=== PATIENT | male | born 1985 | race Caucasian/White ===

== ENCOUNTER 2022-11-01 18:50 | Inpatient (IN) | payer OTHER, SELFPAY ==
[2022-11-01] VITALS (7 sets, daily range): BP systolic 104–142; BP diastolic 67–80; PULSE 13–124; RESP 12–20; TEMP 37.3–37.9; O2SAT 99–100; BMI 53.1
--- NOTE | ~2022-11-01 | CT_ITS ---
EXAMINATION: CT ABDOMEN AND PELVIS WITHOUT AND WITH CONTRAST CLINICAL INFORMATION: GI bleed. Anemia. COMPARISON: None available. TECHNIQUE: Multidetector volumetric imaging was performed of the abdomen and pelvis before and after the IV administration of 80 mL of Omnipaque 350 intravenous contrast. Axial images repeated through the abdomen pelvis after a 2 minute delay. Sagittal and coronal reformatted images were obtained on the technologist's workstation. This CT examination was performed using dose optimization techniques as appropriate, variously including the following: *Automated exposure control *Adjustment of mA and/or kV according to patient size (this includes techniques or standardized protocols for targeted exams where dose is matched to indication/reason for exam; i.e. extremities or head) *Use of iterative reconstruction technique DLP: 2748 mGy-cm FINDINGS: LUNG BASES: A large hiatal hernia. Most of the stomach is above the diaphragm. Lung bases are normally aerated. No pleural effusion. LIVER, GALLBLADDER, AND BILIARY TREE: The liver is normal in size, shape, and attenuation. No focal hepatic lesion or biliary ductal dilatation is present. The gallbladder is unremarkable with no evidence of radiopaque gallstones, gallbladder wall thickening, or obvious pericholecystic inflammatory changes. PANCREAS: Unremarkable SPLEEN: Unremarkable ADRENAL GLANDS: Unremarkable KIDNEYS AND URETERS: The kidneys are normal in size, shape, and attenuation. No hydronephrosis, hydroureter, or calculi seen. No perinephric stranding. BLADDER: Unremarkable GASTROINTESTINAL TRACT: No evidence of gastrointestinal hemorrhage. Large hiatal hernia. Most of the stomach is above the diaphragm. No acute change of the bowel. No bowel obstruction. No bowel wall thickening or edema. No diverticula evident. The appendix is not visualized. There is no inflammatory change of the mesentery. ABDOMINAL WALL: No significant hernia is appreciated. LYMPH NODES: Normal VASCULAR: Unremarkable PELVIC VISCERA: Unremarkable OSSEOUS STRUCTURES: Unremarkable CT/CT gi bleed abd pel wo/w IVcon IMPRESSION: 1. No acute abnormality CT scan abdomen pelvis. No evidence of gastrointestinal hemorrhage. 2. Large hiatal hernia. Fleischner guidelines were followed.
--- NOTE | 2022-11-01 19:00 | PC.NURSE ---
Patient BIBA from home. Patient noted black and tarry stool since last Tuesday. Patient became dizzy, pale, diaphoretic today at home. Patient felt brief sensation of chest pain prior to arrival to ED which resolved. Patient also reports mid abdominal pain. Oral temp 100.3. EKG completed, Dr. Noyola at bedside. Labs drawn per MD orders and sent to lab for processing. [place] applied to patient's chest, patient medicated with oral Tylenol. Patient's spouse is at bedside, call navarro within patient's reach.
--- NOTE | 2022-11-01 19:02 | ECG_ITS ---
Test Reason : ABD PAIN Blood Pressure : / mmHG Vent. Rate : 101 BPM Atrial Rate : 101 BPM P-R Int : 140 ms QRS Dur : 082 ms QT Int : 314 ms P-R-T Axes : 031 018 020 degrees QTc Int : 407 ms Sinus tachycardia Possible Inferior infarct , age undetermined Abnormal ECG No previous ECGs available Referred By: Generic ED Physician Electronically Signed By:ERNESTINA STUART
[2022-11-01 19:16] LABS: MANUAL DIFF FLAG NO
[2022-11-01 19:22] LABS: Basophils Absolute Auto 0.1 X10*3/uL (0.0-0.2); Basophils Percent Auto 0.9 % (0-2); Eosinophils Absolute Auto 0.1 X10*3/uL (0.0-0.4); Eosinophils Percent Auto 1.2 % (0-4); Hematocrit 21.9 % (42.0-52.0); Hemoglobin 7.1 g/dl (14.0-18.0); Imm Gran Abs Auto 0.01 X10*3/uL (0.00-0.03); Imm Gran Pct Auto 0.1 % (0.0-0.4); Lymphocytes Percent Auto 21.7 % (20-40); Mean Corpuscular HGB Conc 32.4 g/dl (31.0-36.0); Mean Corpuscular Hemoglobin 28.7 pg (27.0-33.0); Mean Corpuscular Volume 88.7 fL (80.0-98.0); Monocytes Absolute Auto 0.8 X10*3/uL (0.1-1.2); Monocytes Percent Auto 8.4 % (2-11); Neutrophils Absolute Auto 6.1 x10*3/uL (2.0-8.3); Neutrophils Percent Auto 67.7 % (45-73); Platelet Count 278 X10*3/uL (160-400); Red Blood Count 2.47 X10*6/uL (4.60-5.80); Red Cell Distribution Width 13.1 % (11.0-16.0)
[2022-11-01 19:29] LABS: Prothrombin Time 12.7 SEC (11.1-13.3)
[2022-11-01 19:34] LABS: OBS Int Ctl Valid YES; OBS1 POSITIVE (NEGATIVE)
[2022-11-01 19:34] LABS: Alanine Aminotransferase 10 U/L (0-40); Albumin Level 2.9 g/dL (3.5-5.0); Alkaline Phosphatase 46 U/L (39-117); Anion Gap 9 (12-20); Aspartate Amino Transferase 11 U/L (5-37); Bilirubin Total 0.2 mg/dL (0.0-1.0); Blood Urea Nitrogen 28 mg/dL (9-16); Calcium 7.8 mg/dL (8.4-10.2); Carbon Dioxide 23 mmol/L (22-29); Chloride 112 mmol/L (96-108); Creatinine Clr Calc Pharmacy 174.5; Estimated Glomerular Filt Rate > 60; Glucose Random 120 mg/dL (60-115); Potassium 4.2 mmol/L (3.3-5.1); Sodium 140 mmol/L (135-145); Total Protein 4.7 g/dL (6.5-8.0)
[2022-11-01 19:45] LABS: Troponin-I High Sensitivity < 2.7 ng/L (<3.5-35.0)
--- NOTE | 2022-11-01 19:57 | ED.GIBLEED ---
HPI - GI Bleed General Chief complaint: GI Bleed Stated complaint: Dark tarry stool last week, again lst few days Time Seen by Provider: 11/01/22 19:11 Source: patient Mode of arrival: ambulatory Limitations: no limitations History of Present Illness HPI Narrative: Patient comes to the emergency room from home via ambulance. Patient states then about a week, patient noticed that he had dark stool and then self-resolved. Then, for the last 2 days, patient has been having diarrhea with tarry looking stool. Patient states that he has been taking Pepto-Bismol to help with the diarrhea. However, today, when patient was trying to get up from the toilet, patient nearly passed out. Patient was able to catch himself against the wall before landing on the ground. Patient did not hit his head, did not lose consciousness. Patient on blood thinners. Patient states that he usually does not take ibuprofen, a few days ago took Tylenol for the abdominal cramping. Patient has no past medical history. Related Data Allergies Allergy/AdvReac Type Severity Reaction Status Date / Time No Known Allergies Allergy Verified 11/01/22 19:29 Review of Systems Review of Systems: Constitutional : No Weight loss, No Fever, No Chills, No Night Sweats, No Fatigue, No Malaise ENT/Mouth : No Hearing loss, No Ear Pain, No Nasal Congestion, No Sinus Pain, No Hoarseness, No sore throat, No Rhinorrhea, No Swallowing Difficulty Eyes: No Eye Pain, No Swelling, No Redness, No Foreign Body, No Discharge, No Vision Changes Cardiovascular : No Chest Pain, No SOB, No Dyspnea on Exertion, No Orthopnea, No Edema, No Palpitations Respiratory : No Cough, No Sputum, No Wheezing, No Smoke Exposure, No Dyspnea Gastrointestinal : No Nausea, No Vomiting, No Diarrhea, No Constipation, complaining of abdominal cramping, significant pain, no hematochezia, complaining of melena Genitourinary : no irregular bleeding, No Dysuria, No Urinary Frequency, No Hematuria, No Urinary Incontinence, No Urgency, No Flank Pain, No Urinary Flow Changes, No Hesitancy Musculoskeletal : No joint pain, No Myalgias, No Joint Swelling Skin : No Skin Lesions, No rash Neuro : No Weakness, No Numbness, No Paresthesias, patient had a near syncopal episode Psych : No Anxiety/Panic, No Depression, No SI/HI/AH/VH, No Social Issues, Heme/Lymph: No Bruising, No Bleeding,No Lymphadenopathy Endocrine : No Polyuria, No Polydipsia, No Temperature Intolerance [facility] Social History Social History Alcohol intake: current Alcohol intake frequency: a few times a week Alcohol type: beer Smoked in Last 30 Days: No Use of substances other than those prescribed or required for medical reasons: No Advance Directives: No Advance Directives Information Provided: No Physical Exam Vital Signs: Vital Signs: Last Vital Signs Temp 99.1 F 11/01/22 21:49 Pulse 13 L 11/01/22 21:49 Resp 12 11/01/22 21:49 BP 110/80 11/01/22 21:49 Pulse Ox 99 11/01/22 21:03 O2 Del Method Room Air 11/01/22 21:03 BMI result Body Mass Index 53.1 Const: Other: Appearance: Alert. Oriented X3. No acute distress. Eyes: Pupils equal, round and reactive to light. ENT: Pharynx normal. Neck: Normal inspection. Neck supple. No lymph nodes noted. No crepitus CVS: Normal heart rate and rhythm. Pulses normal. Normal S1 and S2 Respiratory: No respiratory distress. Breath sounds normal. No Wheezing. No rales Abdomen: Soft and nontender. No rigidity. No distention. Patient has black stool on digital rectal exam Skin: Skin warm and dry. Patient is significantly pale. Normal skin turgor. Extremities: No lower extremity edema. No Lacerations. No Rash Neuro: Oriented X 3. No motor deficit. No sensory deficit. Moving all extremities. No slurred speech. CN 2 through 12 grossly intact Psych: calm, cooperative, normal affect Medications Administered Discontinued Medications Generic Name Dose Route Start Last Admin Trade Name Freq PRN Reason Stop Dose Admin Acetaminophen 975 mg 11/01/22 21:09 11/01/22 21:18 Acetaminophen 325 Mg Tablet PO 11/01/22 21:10 975 mg ONCE ONE Administration Sodium Chloride 100 mls @ 100 mls/hr 11/01/22 19:30 11/01/22 21:36 Ns IV 11/01/22 20:29 100 mls/hr ONCE ONE Administration Iohexol 100 ml 11/01/22 20:52 11/01/22 20:52 Iohexol 350 Mg/Ml 100 Ml Infus..Btl IV 11/01/22 20:53 80 ml ONCE ONE Administration Medical Decision Making Medical Decision Making MDM Narrative: -my interpretation of labs, hemoglobin 7.1, hematocrit 22, occult guaiac tested positive -I discussed with the patient he likely has a GI bleed. Most labs pending and CT scan pending -I discussed with the patient the benefits versus risks of a blood transfusion, patient agreeable to get transfused. Patient will need at least 2 units -after 2 hours, H&H was repeated, hemoglobin is stable, slightly improved to 7.6. Blood transfusion has not started. About to start now. -CT scan has been done but radiology report pending. My interpretation of CT scan: No obvious abnormality or massive GI bleed. -patient has not had any fresh red blood per rectum -I discussed the patient with Dr. Singh, patient being admitted Differential Diagnosis Differential Diagnoses: The differential diagnosis associated with the presentation includes (Upper GI bleed, lower GI bleed, infectious colitis, ulcerative colitis) Admission/Observation Consideration of admission/observation: Escalation of care including admission/observation considered (Discussed with the patient that once the workup is completed he will be admitted) Consult Healthcare Provider Management of the patient was discussed with: Hospitalist (Dr. Singh) Lab Data [facility] Lab Attestation statement: I reviewed the patient's lab results. 11/01/22 19:12 11/01/22 19:12 Labs: Lab Results 11/01/22 11/01/22 11/01/22 Range/Units 19:12 19:12 19:12 WBC 9.0 (4.8-10.8) X10*3/uL RBC 2.47 L (4.60-5.80) X10*6/uL Hgb 7.1 L (14.0-18.0) g/dl Hct 21.9 L (42.0-52.0) % MCV 88.7 (80.0-98.0) fL MCH 28.7 (27.0-33.0) pg MCHC 32.4 (31.0-36.0) g/dl RDW 13.1 (11.0-16.0) % Plt Count 278 (160-400) X10*3/uL MPV 9.0 L (9.4-12.4) fL Immature Gran % (Auto) 0.1 (0.0-0.4) % Neut % (Auto) 67.7 (45-73) % Lymph % (Auto) 21.7 (20-40) % [place] % (Auto) 8.4 (2-11) % Eos % (Auto) 1.2 (0-4) % Baso % (Auto) 0.9 (0-2) % Lymph # (Auto) 2.0 (1.2-4.9) X10*3/uL [place] # (Auto) 0.8 (0.1-1.2) X10*3/uL Eos # (Auto) 0.1 (0.0-0.4) X10*3/uL Baso # (Auto) 0.1 (0.0-0.2) X10*3/uL Abs Immat Gran (auto) 0.01 (0.00-0.03) X10*3/uL Absolute Neuts (auto) 6.1 (2.0-8.3) x10*3/uL Absolute Nucleated RBC 0.000 (0.0-0.012) X10*3/uL Nucleated RBC % (auto) 0.0 (0.0-0.2) /100WBC PT 12.7 (11.1-13.3) SEC INR 1.0 (0.9-1.1) Sodium 140 (135-145) mmol/L Potassium 4.2 (3.3-5.1) mmol/L Chloride 112 H (96-108) mmol/L Carbon Dioxide 23 (22-29) mmol/L Anion Gap 9 L (12-20) BUN 28 H (9-16) mg/dL Creatinine 0.74 (0.5-1.4) mg/dL Estim Creat Clear Calc 174.5 Estimated GFR > 60 Random Glucose 120 H (60-115) mg/dL Lactic Acid (0.5-2.0) mmol/L Calcium 7.8 L (8.4-10.2) mg/dL Iron 41 L (45-160) mcg/dL TIBC 239 (228-428) mcg/dL % Saturation 17 (15-50) % Unsat Iron Binding 198 ug/dL Total Bilirubin 0.2 (0.0-1.0) mg/dL AST 11 (5-37) U/L ALT 10 (0-40) U/L Alkaline Phosphatase 46 (39-117) U/L Troponin I High Sens (<3.5-35.0) ng/L Total Protein 4.7 L (6.5-8.0) g/dL Albumin 2.9 L (3.5-5.0) g/dL Stool Occult Blood (NEGATIVE) Blood Type Antibody Screen Crossmatch 11/01/22 11/01/22 11/01/22 Range/Units 19:12 19:25 19:49 WBC (4.8-10.8) X10*3/uL RBC (4.60-5.80) X10*6/uL Hgb (14.0-18.0) g/dl Hct (42.0-52.0) % MCV (80.0-98.0) fL MCH (27.0-33.0) pg MCHC (31.0-36.0) g/dl RDW (11.0-16.0) % Plt Count (160-400) X10*3/uL MPV (9.4-12.4) fL Immature Gran % (Auto) (0.0-0.4) % Neut % (Auto) (45-73) % Lymph % (Auto) (20-40) % [place] % (Auto) (2-11) % Eos % (Auto) (0-4) % Baso % (Auto) (0-2) % Lymph # (Auto) (1.2-4.9) X10*3/uL [place] # (Auto) (0.1-1.2) X10*3/uL Eos # (Auto) (0.0-0.4) X10*3/uL Baso # (Auto) (0.0-0.2) X10*3/uL Abs Immat Gran (auto) (0.00-0.03) X10*3/uL Absolute Neuts (auto) (2.0-8.3) x10*3/uL Absolute Nucleated RBC (0.0-0.012) X10*3/uL Nucleated RBC % (auto) (0.0-0.2) /100WBC PT (11.1-13.3) SEC INR (0.9-1.1) Sodium (135-145) mmol/L Potassium (3.3-5.1) mmol/L Chloride (96-108) mmol/L Carbon Dioxide (22-29) mmol/L Anion Gap (12-20) BUN (9-16) mg/dL Creatinine (0.5-1.4) mg/dL Estim Creat Clear Calc Estimated GFR Random Glucose (60-115) mg/dL Lactic Acid 1.3 (0.5-2.0) mmol/L Calcium (8.4-10.2) mg/dL Iron (45-160) mcg/dL TIBC (228-428) mcg/dL % Saturation (15-50) % Unsat Iron Binding ug/dL Total Bilirubin (0.0-1.0) mg/dL AST (5-37) U/L ALT (0-40) U/L Alkaline Phosphatase (39-117) U/L Troponin I High Sens < 2.7 (<3.5-35.0) ng/L Total Protein (6.5-8.0) g/dL Albumin (3.5-5.0) g/dL Stool Occult Blood POSITIVE (NEGATIVE) Blood Type Antibody Screen Crossmatch 11/01/22 11/01/22 Range/Units 19:50 21:14 WBC (4.8-10.8) X10*3/uL RBC (4.60-5.80) X10*6/uL Hgb 7.6 L (14.0-18.0) g/dl Hct 23.0 L (42.0-52.0) % MCV (80.0-98.0) fL MCH (27.0-33.0) pg MCHC (31.0-36.0) g/dl RDW (11.0-16.0) % Plt Count (160-400) X10*3/uL MPV (9.4-12.4) fL Immature Gran % (Auto) (0.0-0.4) % Neut % (Auto) (45-73) % Lymph % (Auto) (20-40) % [place] % (Auto) (2-11) % Eos % (Auto) (0-4) % Baso % (Auto) (0-2) % Lymph # (Auto) (1.2-4.9) X10*3/uL [place] # (Auto) (0.1-1.2) X10*3/uL Eos # (Auto) (0.0-0.4) X10*3/uL Baso # (Auto) (0.0-0.2) X10*3/uL Abs Immat Gran (auto) (0.00-0.03) X10*3/uL Absolute Neuts (auto) (2.0-8.3) x10*3/uL Absolute Nucleated RBC (0.0-0.012) X10*3/uL Nucleated RBC % (auto) (0.0-0.2) /100WBC PT (11.1-13.3) SEC INR (0.9-1.1) Sodium (135-145) mmol/L Potassium (3.3-5.1) mmol/L Chloride (96-108) mmol/L Carbon Dioxide (22-29) mmol/L Anion Gap (12-20) BUN (9-16) mg/dL Creatinine (0.5-1.4) mg/dL Estim Creat Clear Calc Estimated GFR Random Glucose (60-115) mg/dL Lactic Acid (0.5-2.0) mmol/L Calcium (8.4-10.2) mg/dL Iron (45-160) mcg/dL TIBC (228-428) mcg/dL % Saturation (15-50) % Unsat Iron Binding ug/dL Total Bilirubin (0.0-1.0) mg/dL AST (5-37) U/L ALT (0-40) U/L Alkaline Phosphatase (39-117) U/L Troponin I High Sens (<3.5-35.0) ng/L Total Protein (6.5-8.0) g/dL Albumin (3.5-5.0) g/dL Stool Occult Blood (NEGATIVE) Blood Type O Positive Antibody Screen NEGATIVE Crossmatch See Detail Independent Interpretation I performed an independent interpretation of an: CT Scan Radiology Impression Discussion of test interpretation with radiology: I have reviewed the radiologist's reading. Radiologist Impression: FINDINGS: LUNG BASES: A large hiatal hernia. Most of the stomach is above the diaphragm. Lung bases are normally aerated. No pleural effusion. LIVER, GALLBLADDER, AND BILIARY TREE: The liver is normal in size, shape, and attenuation. No focal hepatic lesion or biliary ductal dilatation is present. The gallbladder is unremarkable with no evidence of radiopaque gallstones, gallbladder wall thickening, or obvious pericholecystic inflammatory changes.? PANCREAS: Unremarkable? SPLEEN: Unremarkable? ADRENAL GLANDS: Unremarkable? KIDNEYS AND URETERS: The kidneys are normal in size, shape, and attenuation. No hydronephrosis, hydroureter, or calculi seen. No perinephric stranding.? BLADDER: Unremarkable? GASTROINTESTINAL TRACT: No evidence of gastrointestinal hemorrhage. Large hiatal hernia. Most of the stomach is above the diaphragm. No acute change of the bowel. No bowel obstruction. No bowel wall thickening or edema. No diverticula evident. The appendix is not visualized. There is no inflammatory change of the mesentery. ABDOMINAL WALL: No significant hernia is appreciated.? LYMPH NODES: Normal VASCULAR: Unremarkable PELVIC VISCERA: Unremarkable? OSSEOUS STRUCTURES: Unremarkable? Critical Care Time Critical Care Time Critical Care Time: Yes Total Critical Care Time: 75 Attestation: I have personally provided critical care time. Time includes review of lab data, radiology results, discussion with consultants, and monitoring for potential decompensation. Intervention performed as documented. Discharge Plan Discharge Clinical Impression: Acute GI bleeding, Anemia Patient Disposition: Admitted As Inpatient
[2022-11-01 20:12] LABS: Lactic Acid 1.3 mmol/L (0.5-2.0)
--- NOTE | 2022-11-01 20:42 | MHC.EDTECH ---
Unable to get orthostaics vitals with patient standing up due to patient being dizzy DR. Jazmín DILLARD was made aware
--- NOTE | 2022-11-01 20:49 | MHC.EDTECH ---
Plan of care is ongoing Call light is within reach pt expresses no other needs at this time
[2022-11-01] MEDS: iohexoL 350 MG/ML 100 ML INFUS..BTL IV (20:52)
[2022-11-01] MEDS: Acetaminophen 325 MG TABLET 975 MG PO (21:18)
[2022-11-01 21:23] LABS: Hemoglobin 7.6 g/dl (14.0-18.0)
[2022-11-01 22:05] LABS: Iron 41 mcg/dL (45-160); Percent Iron Saturation 17 % (15-50); Total Iron Binding Capacity 239 mcg/dL (228-428); Unsaturated Iron Binding 198 ug/dL
--- NOTE | 2022-11-01 22:51 | PM.IMHP ---
History of Present Illness Date of Service: 11/01/22 Chief Complaint: Melena , dizziness A 37 years old morbidly obese male with no significant PMH who presents today with reported 2 weeks on\off melena with incident of near syncope upon getting up from toilet. The patient denies any hx of NSAIDs usage, Alcohol, smoking, dyspepsia, heartburn as he uses tylenol for pain if needed. Denies any fever, chills, weight\appetite change, Prev hx of similar problem, chest pain, nausea or vomiting. For the last 2 weeks he noticed on\off incidents of melena that worsened the last 3 days with black diarrhea. he almost passed out upon standing up so he came to the hospital for further eval. In ED, found to have Hb of 7.1 with no baseline available. Positive occult stool. Admitted for futher eval and treatment. Review of Systems Review of Systems: No fever, chills No chest pain, palpitation No shortness of breath or coughing No abdominal pain, nausea or vomiting No urinary symptoms No any rash or wounds PMFSH Medical History Morbid obesity with BMI of 50.0-59.9, adult Functional capacity: independent ambulation Social History Alcohol intake: current Alcohol intake frequency: a few times a week Alcohol type: beer Smoked in Last 30 Days: No Use of substances other than those prescribed or required for medical reasons: No Advance Directives: No Advance Directives Information Provided: No Meds Allergies Allergy/AdvReac Type Severity Reaction Status Date / Time No Known Allergies Allergy Verified 11/01/22 19:29 Active Medications: Current Medications Acetaminophen (Acetaminophen 325 Mg Tablet) 650 mg PO Q6H PRN PRN Reason: Pain, Mild (Pain Scale 1-3) Ondansetron HCl (Ondansetron Hcl 4 Mg/2 Ml Vial) 4 mg IVPUSH Q8H PRN PRN Reason: Nausea and Vomiting Sodium Chloride (0.9 % Sodium Chloride Flush 3 Ml Syringe) 3 ml IVFLUSH QSHIFT PENDING SALE TO [facility] Physical Exam Vital Signs and Narrative: Vital Signs: Last Vital Signs Temp 99.1 F 11/01/22 21:49 Pulse 13 L 11/01/22 21:49 Resp 12 11/01/22 21:49 BP 110/80 11/01/22 21:49 Pulse Ox 99 11/01/22 21:03 O2 Del Method Room Air 11/01/22 21:03 BMI result Body Mass Index 53.1 Const: Other: Constitutional : Awake, interactive, obese, not in distress Neck : Normal inspection, Supple Cardiovascular : RRR, no JVP, no lower extremity edema Respiratory : good bilateral air entry, no crackles, wheezes or rhonchi Gastrointestinal: soft, lax, Normal bowel sounds, Non tender Skin : Warm, Dry Neurological : Alert & oriented x3, No focal deficit Results Labs 11/01/22 21:14 11/01/22 19:12 Labs: Laboratory Results - last 24 hr 11/01/22 11/01/22 11/01/22 19:12 19:12 19:12 MCV 88.7 MCH 28.7 MCHC 32.4 RDW 13.1 Plt Count 278 MPV 9.0 L Immature Gran % (Auto) 0.1 Neut % (Auto) 67.7 Lymph % (Auto) 21.7 [place] % (Auto) 8.4 Eos % (Auto) 1.2 Baso % (Auto) 0.9 Lymph # (Auto) 2.0 [place] # (Auto) 0.8 Eos # (Auto) 0.1 Baso # (Auto) 0.1 Abs Immat Gran (auto) 0.01 Absolute Neuts (auto) 6.1 Absolute Nucleated RBC 0.000 Nucleated RBC % (auto) 0.0 PT 12.7 INR 1.0 Anion Gap 9 L Estim Creat Clear Calc 174.5 Estimated GFR > 60 Random Glucose 120 H Lactic Acid Calcium 7.8 L Iron 41 L TIBC 239 % Saturation 17 Unsat Iron Binding 198 Total Bilirubin 0.2 AST 11 ALT 10 Alkaline Phosphatase 46 Total Protein 4.7 L Albumin 2.9 L Stool Occult Blood Blood Type Antibody Screen Crossmatch 11/01/22 11/01/22 11/01/22 19:25 19:49 19:50 MCV MCH MCHC RDW Plt Count MPV Immature Gran % (Auto) Neut % (Auto) Lymph % (Auto) [place] % (Auto) Eos % (Auto) Baso % (Auto) Lymph # (Auto) [place] # (Auto) Eos # (Auto) Baso # (Auto) Abs Immat Gran (auto) Absolute Neuts (auto) Absolute Nucleated RBC Nucleated RBC % (auto) PT INR Anion Gap Estim Creat Clear Calc Estimated GFR Random Glucose Lactic Acid 1.3 Calcium Iron TIBC % Saturation Unsat Iron Binding Total Bilirubin AST ALT Alkaline Phosphatase Total Protein Albumin Stool Occult Blood POSITIVE Blood Type O Positive Antibody Screen NEGATIVE Crossmatch See Detail Imaging Radiologist's Impressions: Impressions Abdomen/Pelvis CT 11/01/22 21:01 IMPRESSION: 1. No acute abnormality CT scan abdomen pelvis. No evidence of gastrointestinal hemorrhage. 2. Large hiatal hernia. Fleischner guidelines were followed. Assessment and Plan (1) Symptomatic anemia: Status: Acute (2) Acute blood loss anemia: Status: Acute (3) Acute GI bleeding: Status: Acute Plan A 37 years old morbidly obese male with no significant PMH who presents today with reported 2 weeks on\off melena with incident of near syncope upon getting up from toilet. Acute blood loss symptomatic anemia 2/2 GIB Melena w positive occult Hb of 7.1 Transfused PRBCs Normal PLT, INR, PT and LFT Normal Iron profile CT abd negative for any abnormal findings Keep NPO in case GI wants to do study in the afternoon, plz start diet if not IV Pantoprazole follow H&H Morbid obesity advised to lose weight DVT PPx SCDs The patinet will need 2 overnight hospital stay for evaluation of bleeding, specialist opinion and likely need of procedure. Time Spent With Patient Time: Total time managing care of this patient today ____ minutes. Quality Stroke Does the patient have a stroke diagnosis?: No VTE Prior VTE?: No VTE Risk Level:: Medical - moderate - high VTE Device Contraindication: N/A - Device Ordered VTE Drug Contraindication: Treatment Not Indicated
[2022-11-01] MEDS: Pantoprazole Sodium 40 MG/10 ML VIAL 80 MG IVPUSH (23:47)
[2022-11-02] VITALS (14 sets, daily range): BP systolic 110–145; BP diastolic 68–92; PULSE 78–99; RESP 12–20; TEMP 36.2–37.6; O2SAT 96–100
--- NOTE | 2022-11-02 01:44 | PC.NURSE ---
Patient is alert and oriented x5, VSS. Patient denies any pain at present. First unit of PRBC infused, patient tolerated blood transfusion well, no adverse reactions noted. Second unit of PRBC infusing. Patient is NPO ice chis give to patient to lubricate his mouth. Patient's spouse is at bedside.
--- NOTE | 2022-11-02 03:05 | PC.NURSE ---
Second unit of PRBC infused. VSS. Patient denies any pain. Patient resting comfortably in a stretcher. Patient's spouse in at bedside call navarro within patient's reach.
[2022-11-02 07:01] LABS: Hematocrit 27.3 % (42.0-52.0); Hemoglobin 9.1 g/dl (14.0-18.0); Mean Corpuscular HGB Conc 33.3 g/dl (31.0-36.0); Mean Corpuscular Hemoglobin 29.3 pg (27.0-33.0); Mean Corpuscular Volume 87.8 fL (80.0-98.0); Mean Platelet Volume 8.4 fL (9.4-12.4); Platelet Count 225 X10*3/uL (160-400); Red Blood Count 3.11 X10*6/uL (4.60-5.80); Red Cell Distribution Width 13.4 % (11.0-16.0); White Blood Count 8.6 X10*3/uL (4.8-10.8)
[2022-11-02] MEDS: Pantoprazole Sodium 40 MG/10 ML VIAL IVPUSH ×2 (07:11→16:06)
[2022-11-02] MEDS: 0.9 % Sodium Chloride Flush 3 ML SYRINGE IVFLUSH ×2 (07:11→16:17)
[2022-11-02 07:24] LABS: Anion Gap 9 (12-20); Blood Urea Nitrogen 26 mg/dL (9-16); Calcium 8.6 mg/dL (8.4-10.2); Carbon Dioxide 25 mmol/L (22-29); Chloride 111 mmol/L (96-108); Creatinine Clr Calc Pharmacy 172.2; Estimated Glomerular Filt Rate > 60; Glucose Random 105 mg/dL (60-115); Potassium 4.5 mmol/L (3.3-5.1); Sodium 140 mmol/L (135-145)
--- NOTE | 2022-11-02 07:30 | PC.NURSE ---
Addendum entered by Jazzy Taylor 11/02/22 08:04: pt lung sounds clear bilaterally with no complaints of chest pain or SOB. abdomen soft, non tender with hypoactive bowel sounds in all 4 quadrants. pt reminded they are NPO at this time. Original Note: pt a&ox3. respirations even and unlabored. pt reports no pain at this time. pt medicated per mar. vss. normal sinus on tele.
--- NOTE | 2022-11-02 07:52 | PHA.MEDREC ---
Pharmacy Consult ? Medication Reconciliation Pharmacy has completed the medication reconciliation.
--- NOTE | 2022-11-02 09:20 | PC.NURSE ---
respirations even and unlabored.pt sleeping comfortably.
--- NOTE | 2022-11-02 10:14 | MHC.CM.PN ---
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 Home/self care is the goal and CM has initiated and will follow for dc planning.PCP is from [facility] in [place].
--- NOTE | 2022-11-02 13:05 | P.PNIM_ITS ---
Subjective Subjective Date of Service: 11/02/22 Interval History: Admitted due to melena, denies recurrent episodes of bloody stools, no hematemesis since arrival to the emergency room, denies abdominal pain, no nausea, no vomiting, no fevers, no chills no other acute issues. Patient denies aspirin, no NSAIDs drinks alcohol few times a week, no weight loss. Review of Systems All other system reviewed and negative Physical Exam Vital Signs: Vital Signs: Last Vital Signs Temp 99.1 F 11/02/22 10:00 Pulse 90 11/02/22 10:00 Resp 13 11/02/22 10:00 BP 123/81 11/02/22 10:00 Pulse Ox 97 11/02/22 10:00 O2 Del Method Room Air 11/02/22 10:00 BMI result Body Mass Index 53.1 Const: Other: General awake alert x3, resting comfortably in no acute distress. Neck supple no JVD. CVS regular rate rhythm, Respiratory lungs clear to auscultation, no respiratory distress, no wheeze, no rhonchi. Gastrointestinal abdomen soft, nontender, bowel sounds audible, no guarding , no rigidity. Extremities no Neuro nonfocal Skin no rash Psych appropriate affect Objective Data Active Medications Acetaminophen (Acetaminophen 325 Mg Tablet) 650 mg PO Q6H PRN PRN Reason: Pain, Mild (Pain Scale 1-3) Ondansetron HCl (Ondansetron Hcl 4 Mg/2 Ml Vial) 4 mg IVPUSH Q8H PRN PRN Reason: Nausea and Vomiting Pantoprazole Sodium (Pantoprazole Sodium 40 Mg/10 Ml Vial) 40 mg IVPUSH BID@0630,1630 [facility] Last Admin: 11/02/22 07:11 Dose: 40 mg Documented By: ANDRES Sodium Chloride (0.9 % Sodium Chloride Flush 3 Ml Syringe) 3 ml IVFLUSH QSHIFT [facility] Last Admin: 11/02/22 07:11 Dose: 3 ml Documented By: ANDRES Labs 11/02/22 06:55 11/02/22 06:55 Labs: Laboratory Results - last 24 hr 11/01/22 11/01/22 11/01/22 19:12 19:12 19:12 MCV 88.7 MCH 28.7 MCHC 32.4 RDW 13.1 Plt Count 278 MPV 9.0 L Immature Gran % (Auto) 0.1 Neut % (Auto) 67.7 Lymph % (Auto) 21.7 [place] % (Auto) 8.4 Eos % (Auto) 1.2 Baso % (Auto) 0.9 Lymph # (Auto) 2.0 [place] # (Auto) 0.8 Eos # (Auto) 0.1 Baso # (Auto) 0.1 Abs Immat Gran (auto) 0.01 Absolute Neuts (auto) 6.1 Absolute Nucleated RBC 0.000 Nucleated RBC % (auto) 0.0 PT 12.7 INR 1.0 Anion Gap 9 L Estim Creat Clear Calc 174.5 Estimated GFR > 60 Random Glucose 120 H Lactic Acid Calcium 7.8 L Iron 41 L TIBC 239 % Saturation 17 Unsat Iron Binding 198 Total Bilirubin 0.2 AST 11 ALT 10 Alkaline Phosphatase 46 Total Protein 4.7 L Albumin 2.9 L Stool Occult Blood Blood Type Antibody Screen Crossmatch 11/01/22 11/01/22 11/01/22 19:25 19:49 19:50 MCV MCH MCHC RDW Plt Count MPV Immature Gran % (Auto) Neut % (Auto) Lymph % (Auto) [place] % (Auto) Eos % (Auto) Baso % (Auto) Lymph # (Auto) [place] # (Auto) Eos # (Auto) Baso # (Auto) Abs Immat Gran (auto) Absolute Neuts (auto) Absolute Nucleated RBC Nucleated RBC % (auto) PT INR Anion Gap Estim Creat Clear Calc Estimated GFR Random Glucose Lactic Acid 1.3 Calcium Iron TIBC % Saturation Unsat Iron Binding Total Bilirubin AST ALT Alkaline Phosphatase Total Protein Albumin Stool Occult Blood POSITIVE Blood Type O Positive Antibody Screen NEGATIVE Crossmatch See Detail 11/02/22 11/02/22 06:55 06:55 MCV 87.8 MCH 29.3 MCHC 33.3 RDW 13.4 Plt Count 225 MPV 8.4 L Immature Gran % (Auto) Neut % (Auto) Lymph % (Auto) [place] % (Auto) Eos % (Auto) Baso % (Auto) Lymph # (Auto) [place] # (Auto) Eos # (Auto) Baso # (Auto) Abs Immat Gran (auto) Absolute Neuts (auto) Absolute Nucleated RBC 0.000 Nucleated RBC % (auto) 0.0 PT INR Anion Gap 9 L Estim Creat Clear Calc 172.2 Estimated GFR > 60 Random Glucose 105 Lactic Acid Calcium 8.6 D Iron TIBC % Saturation Unsat Iron Binding Total Bilirubin AST ALT Alkaline Phosphatase Total Protein Albumin Stool Occult Blood Blood Type Antibody Screen Crossmatch Assessment and Plan (1) Acute blood loss anemia: Status: Acute Plan 37 years old morbidly obese male with no significant PMH who presents today with reported 2 weeks on\off melena with incident of near syncope upon getting up from toilet. Acute blood loss symptomatic anemia 2/2 GIB Melena w positive occult, no recurrent episodes of melena since admission,on no medications at home. Denies lightheadedness or dizziness. Hb of 7.1 on admission, received 2 units of packed RBC hemoglobin improved to 9.1 Normal Iron profile, CT abd negative for any abnormal findings Seen by GI will undergo upper endoscopy by Dr. Downing today, continue NPO, IV fluids, IV Protonix, follow H&H Morbid obesity advised to lose weight, low-calorie diet DVT PPx SCDs patient will need continued hospital stay for evaluation of bleeding, with upper endoscopy and close monitoring of CBC. Time Spent With Patient Time: Total time managing care of this patient today ____ minutes. Quality Stroke Does the patient have a stroke diagnosis?: No VTE Prior VTE?: No VTE Risk Level:: Medical - moderate - high VTE Device Contraindication: N/A - Device Ordered VTE Drug Contraindication: Treatment Not Indicated
--- NOTE | 2022-11-02 13:05 | PC.NURSE ---
report given to short stay nurse.
--- NOTE | 2022-11-02 13:18 | PC.NURSE ---
pt taken to short stay surgery.
--- NOTE | 2022-11-02 13:41 | HO.ANESPROP2 ---
HPI - Anesthesia Eval Consult details Narrative: 37 yo M with no PMH admitted for melena s/p 2 units PRBCs. H/H 9.1/27.3. BMI 53. No PSH. Family history negative for any anesthesia related complications. PMFSH Active Problems Active Problems: All Active Problems (Updated 11/01/22 @ 23:04 by Fany Singh MD) Acute blood loss anemia (Acute) Symptomatic anemia (Acute) Acute GI bleeding (Acute) Anemia (Acute) Past Medical History Medical History Morbid obesity with BMI of 50.0-59.9, adult Functional capacity: independent ambulation Family History Family history of problems with anesthesia: No Surgical History History of Problems with Anesthesia: No Social History Social History Alcohol intake: current Alcohol intake frequency: does not drink Alcohol type: beer Patient Tobacco Use Status: Never used Tobacco Smoked in Last 30 Days: No Second Hand Smoke Exposure: No Use of substances other than those prescribed or required for medical reasons: No Are you DNR?: No Advance Directives: No Advance Directives Information Provided: No Advance Directives on File: No Nutrition Risks: No Nutritional Risk service: No Meds Allergies Allergy/AdvReac Type Severity Reaction Status Date / Time No Known Allergies Allergy Verified 11/01/22 19:29 Active Medications: Current Medications Acetaminophen (Acetaminophen 325 Mg Tablet) 650 mg PO Q6H PRN PRN Reason: Pain, Mild (Pain Scale 1-3) Lactated Ringer's (Lr) 1,000 mls @ 80 mls/hr IVCONT .[id number] [facility] Ondansetron HCl (Ondansetron Hcl 4 Mg/2 Ml Vial) 4 mg IVPUSH Q8H PRN PRN Reason: Nausea and Vomiting Pantoprazole Sodium (Pantoprazole Sodium 40 Mg/10 Ml Vial) 40 mg IVPUSH BID@0630,1630 [facility] Last Admin: 11/02/22 07:11 Dose: 40 mg Sodium Chloride (0.9 % Sodium Chloride Flush 3 Ml Syringe) 3 ml IVFLUSH QSHIFT [facility] Last Admin: 11/02/22 07:11 Dose: 3 ml Home Medications Medication Instructions Recorded Confirmed Last Taken Type No Known Home Meds 11/02/22 11/02/22 Unknown History Exam Exam Date and Time: November 02, 2022 1341 Height,Weight and Vital Signs: Height 5 ft 3 in Weight 136.078 kg Last Vital Signs Temp 99.7 F 11/02/22 13:25 Pulse 99 11/02/22 13:25 Resp 18 11/02/22 13:25 BP 145/84 H 11/02/22 13:25 Pulse Ox 98 11/02/22 13:25 O2 Del Method Room Air 11/02/22 13:25 Pertinent Lab Results Pertinent Lab Results: Laboratory Tests 11/01/22 11/01/22 11/01/22 19:12 19:12 19:12 WBC 9.0 RBC 2.47 L Hgb 7.1 L Hct 21.9 L MCV 88.7 MCH 28.7 MCHC 32.4 RDW 13.1 Plt Count 278 MPV 9.0 L Immature Gran % (Auto) 0.1 Neut % (Auto) 67.7 Lymph % (Auto) 21.7 [place] % (Auto) 8.4 Eos % (Auto) 1.2 Baso % (Auto) 0.9 Lymph # (Auto) 2.0 [place] # (Auto) 0.8 Eos # (Auto) 0.1 Baso # (Auto) 0.1 Abs Immat Gran (auto) 0.01 Absolute Neuts (auto) 6.1 Absolute Nucleated RBC 0.000 Nucleated RBC % (auto) 0.0 PT 12.7 INR 1.0 Sodium 140 Potassium 4.2 Chloride 112 H Carbon Dioxide 23 Anion Gap 9 L BUN 28 H Creatinine 0.74 Estim Creat Clear Calc 174.5 Estimated GFR > 60 Random Glucose 120 H Lactic Acid Calcium 7.8 L Iron 41 L TIBC 239 % Saturation 17 Unsat Iron Binding 198 Total Bilirubin 0.2 AST 11 ALT 10 Alkaline Phosphatase 46 Troponin I High Sens Total Protein 4.7 L Albumin 2.9 L Stool Occult Blood Blood Type Antibody Screen Crossmatch 11/01/22 11/01/22 11/01/22 19:12 19:25 19:49 WBC RBC Hgb Hct MCV MCH MCHC RDW Plt Count MPV Immature Gran % (Auto) Neut % (Auto) Lymph % (Auto) [place] % (Auto) Eos % (Auto) Baso % (Auto) Lymph # (Auto) [place] # (Auto) Eos # (Auto) Baso # (Auto) Abs Immat Gran (auto) Absolute Neuts (auto) Absolute Nucleated RBC Nucleated RBC % (auto) PT INR Sodium Potassium Chloride Carbon Dioxide Anion Gap BUN Creatinine Estim Creat Clear Calc Estimated GFR Random Glucose Lactic Acid 1.3 Calcium Iron TIBC % Saturation Unsat Iron Binding Total Bilirubin AST ALT Alkaline Phosphatase Troponin I High Sens < 2.7 Total Protein Albumin Stool Occult Blood POSITIVE Blood Type Antibody Screen Crossmatch 11/01/22 11/01/22 11/02/22 19:50 21:14 06:55 WBC 8.6 RBC 3.11 L D Hgb 7.6 L 9.1 L Hct 23.0 L 27.3 L MCV 87.8 MCH 29.3 MCHC 33.3 RDW 13.4 Plt Count 225 MPV 8.4 L Immature Gran % (Auto) Neut % (Auto) Lymph % (Auto) [place] % (Auto) Eos % (Auto) Baso % (Auto) Lymph # (Auto) [place] # (Auto) Eos # (Auto) Baso # (Auto) Abs Immat Gran (auto) Absolute Neuts (auto) Absolute Nucleated RBC 0.000 Nucleated RBC % (auto) 0.0 PT INR Sodium Potassium Chloride Carbon Dioxide Anion Gap BUN Creatinine Estim Creat Clear Calc Estimated GFR Random Glucose Lactic Acid Calcium Iron TIBC % Saturation Unsat Iron Binding Total Bilirubin AST ALT Alkaline Phosphatase Troponin I High Sens Total Protein Albumin Stool Occult Blood Blood Type O Positive Antibody Screen NEGATIVE Crossmatch See Detail 11/02/22 06:55 WBC RBC Hgb Hct MCV MCH MCHC RDW Plt Count MPV Immature Gran % (Auto) Neut % (Auto) Lymph % (Auto) [place] % (Auto) Eos % (Auto) Baso % (Auto) Lymph # (Auto) [place] # (Auto) Eos # (Auto) Baso # (Auto) Abs Immat Gran (auto) Absolute Neuts (auto) Absolute Nucleated RBC Nucleated RBC % (auto) PT INR Sodium 140 Potassium 4.5 Chloride 111 H Carbon Dioxide 25 Anion Gap 9 L BUN 26 H Creatinine 0.75 Estim Creat Clear Calc 172.2 Estimated GFR > 60 Random Glucose 105 Lactic Acid Calcium 8.6 D Iron TIBC % Saturation Unsat Iron Binding Total Bilirubin AST ALT Alkaline Phosphatase Troponin I High Sens Total Protein Albumin Stool Occult Blood Blood Type Antibody Screen Crossmatch Airway Mallampati Class: II TM Dist: >3cm Neck ROM: Full Loose/Missing/Broken Teeth: No Heart: S1S2 Lungs: CTAB Assessment and Plan Assessment Anesthesia Assessment: Anesthesia Plan Discussed and Chart Reviewed Final Anesthetic Review Family History of Problems with Anesthesia: No History of Problems with Anesthesia: No NPO: Yes ASA Class: III Final Preanesthetic Review: No Changes in Pt Med Stat, Meds/Allgs Chart Reviewed, Consent Obtained/Reviewed and Anes Risks/Benef Reviewed Patient Risk: Intermediate Procedure Risk: Low Anesthetic Plan Anesthetic Plan: MAC: and Agree w/ Assess. and Plan Disposition: Standard PACU
--- NOTE | 2022-11-02 14:27 | MHC.SHP ---
Pre-Procedural Eval Section A Date of Service: 11/02/22 The patient is an INPATIENT: Yes Changes since office visit: No Cold of Flu in the past 2 weeks, No New Medical Problems, No Changes in Medication and No Patient answered all questions The History & Physical has been completed within 30 days and I have reviewed it.: Yes Section B Chief Complaint: Blood loss anemia Allergies: Allergies Allergy/AdvReac Type Severity Reaction Status Date / Time No Known Allergies Allergy Verified 11/01/22 19:29 Plan I have reviewed the history and physical and performed a pertinent physical examination on my patient. No changes have occurred unless specified. Time Spent With Patient Time: Total time managing care of this patient today ____ minutes.
--- NOTE | 2022-11-02 14:59 | P.BOP_ITS ---
Brief Operative Note Date of Service: 11/02/22 Pre-op diagnosis: gi bleed Post-op diagnosis: same Procedure: egd/control hemorrhage Surgeon: Brian Downing Anesthesia: MAC Was an Lens Hardener used for this Procedure?: No Estimated blood loss (mL): 2 Pathology: other Condition: stable Disposition: PACU
--- NOTE | 2022-11-02 15:00 | PM.EVENT ---
Event Note Date of Service: 11/02/22 Event Note: EGD note dictated 12-15mm nonbleeding gastric ulcer with visible vessel on lesser curvature. treated with epinephrine and cautery antral biopsies obtained. Rec: clear liquids for now. follow hct continuous pantoprazole infusion f/u bx results. Time Spent With Patient Time: Total time managing care of this patient today ____ minutes.
--- NOTE | 2022-11-02 15:54 | PC.NURSE ---
attempted to give report to nurse on [facility]. Nurse in [facility] was given report from short stay surgery.
[2022-11-02] MEDS: Lactated Ringers 1,000 ML 80 ML IVCONT (16:06)
--- NOTE | 2022-11-02 16:45 | CONS_ITS ---
DATE OF SERVICE: 11/02/2022 REFERRING PHYSICIAN: Fany Singh MD REASON FOR CONSULTATION: GI bleeding. HISTORY OF PRESENT ILLNESS: The patient is a pleasant 37-year-old man with no significant past medical history, who was admitted to the hospital with GI bleeding after presenting to the emergency room with complaints of melena over the last 2 weeks intermittently. On the day of admission, he felt lightheaded and had near syncope after getting up from the toilet. He reportedly had been taking Pepto-Bismol as well for black liquid diarrhea. He was evaluated in the emergency room, where laboratory studies were obtained and he was found to have a hematocrit of 21.9 and black stool on digital rectal examination. He was transfused a total of 2 units of packed red blood cells and given IV proton pump inhibitors. A CT scan of the abdomen and pelvis was obtained, which was reviewed. This showed a large hiatal hernia, but no evidence of active GI bleeding. The patient denies NSAID usage or peptic ulcer symptoms. He does not smoke and drinks alcohol occasionally. 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 PAST MEDICAL HISTORY: Elevated BMI. He denies other medical or surgical illnesses. CURRENT MEDICATIONS: His current medication list is reviewed in the chart. ALLERGIES: THERE ARE NONE REPORTED. FAMILY HISTORY: Negative for upper GI malignancies. SOCIAL HISTORY: He denies tobacco and alcohol abuse. REVIEW OF SYSTEMS: SKIN: No pruritus. HEENT: Negative. CARDIOPULMONARY: He denies shortness of breath or chest pain. GASTROINTESTINAL: As above. GENITOURINARY: Negative. NEUROPSYCHIATRIC: Negative. PHYSICAL EXAMINATION: GENERAL: Shows a pleasant male, lying comfortably on the stretcher. VITAL SIGNS: Stable. He has had mild tachycardia in the emergency department. SKIN: Pale. HEENT: Shows no scleral icterus. NECK: Without lymphadenopathy or thyromegaly. LUNGS: Clear. HEART: Shows a regular rate and rhythm. S1, S2. No murmur. ABDOMEN: Soft without focal masses or tenderness. Bowel sounds are present. No organomegaly is noted. EXTREMITIES: Without edema. DIAGNOSTIC DATA: Laboratory data and CT scanning are reviewed. IMPRESSION: Gastrointestinal bleeding. His presentation is consistent with upper gastrointestinal blood loss. The differential diagnosis for this includes peptic ulcer disease, gastritis, AVMs, and erosive esophagitis. Malignancy seems less likely based on the patient's young age. I discussed endoscopy with him including risks and benefits of the procedure. He understands these and agrees to proceed. This will be arranged for today. I agree with treating him with a proton pump inhibitor and monitoring his hematocrit. Thanks for asking me to see him. I will follow him in the hospital with you. MD RAFY Banda/VIKASH / [id number]
[2022-11-02] MEDS: Pantoprazole Sodium 80 MG in 0.9 % Sodium Chloride 80 ML 10 MG IV (16:55)
--- NOTE | 2022-11-02 17:04 | OP_ITS ---
DATE OF SERVICE: 11/02/2022 SURGEON: Brian Downing MD INDICATIONS: Upper GI bleeding. PREOPERATIVE DIAGNOSIS: POSTOPERATIVE DIAGNOSIS: PROCEDURE PERFORMED: Upper endoscopy with control of hemorrhage and biopsy. ESTIMATED BLOOD LOSS: COMPLICATIONS: ANESTHESIA: Monitored anesthesia care. ASSISTANTS: SPECIMENS: DESCRIPTION OF PROCEDURE: A history and physical was performed. The risks and benefits of the procedure were explained to the patient. Informed consent was obtained. The patient was placed in the left lateral decubitus position. The Olympus video gastroscope was introduced into the esophagus, stomach, and duodenum. Examination was performed. The scope was removed. He tolerated the procedure well and was taken to the recovery area in stable condition. FINDINGS: Esophagus: The esophagus was normal. Stomach: The stomach showed a 12-15 mm ulcer on the lesser curvature, 8 cm below the EG junction with a visible vessel that was not bleeding. There was no blood in the stomach. Duodenum: The bulb and 2nd portion were normal. A total of 3 cc of epinephrine was injected into the mucosa around the ulcer with good mucosal blanching. The gold probe was used to cauterize the visible vessel. There was no bleeding at the termination of the procedure. Following this, antral biopsies were obtained to evaluate for H pylori. IMPRESSION: Gastric ulcer. RECOMMENDATIONS: 1. Follow up the biopsy results. 2. Continuation infusion pantoprazole. 3. Begin clear liquid diet. MD RAFY Banda/VIKASH / [id number]
[2022-11-03] VITALS (10 sets, daily range): BP systolic 121–139; BP diastolic 61–77; PULSE 66–85; RESP 14–22; TEMP 36.2–37.2; O2SAT 98–100
[2022-11-03] MEDS: Lactated Ringers 1,000 ML 80 ML IVCONT ×2 (05:10→21:13)
[2022-11-03 05:50] LABS: Hematocrit 23.4 % (42.0-52.0); Hemoglobin 7.6 g/dl (14.0-18.0); Mean Corpuscular HGB Conc 32.5 g/dl (31.0-36.0); Mean Corpuscular Volume 89.3 fL (80.0-98.0); Mean Platelet Volume 9.2 fL (9.4-12.4); Platelet Count 212 X10*3/uL (160-400); Red Blood Count 2.62 X10*6/uL (4.60-5.80); Red Cell Distribution Width 13.9 % (11.0-16.0); White Blood Count 6.1 X10*3/uL (4.8-10.8)
[2022-11-03] MEDS: Pantoprazole Sodium 80 MG in 0.9 % Sodium Chloride 80 ML 10 MG IV ×3 (10:59→23:51)
--- NOTE | 2022-11-03 11:21 | HO.POSTANES ---
Post Anesthesia Evaluation Post Anesthesia Evaluation Date of Service: 11/03/22 Vital Signs: Vital Signs Temp Pulse Resp BP Pulse Ox O2 Del Method 11/03/22 11:16 98.7 F 75 20 130/70 100 Room Air 11/03/22 08:00 98.1 F 85 20 139/64 100 Room Air 11/03/22 04:00 97.2 F 66 14 125/61 99 Room Air 11/03/22 00:00 98.1 F 77 16 121/63 99 Room Air Anesthesia: Monitored Mental Status: Awake Pain Control: Satisfactory Nausea/Vomiting: None Hydration: Adequate Anesthesia-Related Issues: No Anes. Related Issues
--- NOTE | 2022-11-03 12:59 | P.PNIM_ITS ---
Subjective Subjective Date of Service: 11/03/22 Interval History: Resting comfortably offers no acute complaints had 1 moderate black tarry bowel movement last night, no fresh blood denies abdominal pain, no nausea, no vomiting tolerating clear liquid diet, hematocrit drop down to 23.4 this morning, patient denies lightheadedness, no dizziness, no chest pain, no palpitations, no shortness of breath. Review of Systems All other system reviewed and negative Physical Exam Vital Signs: Vital Signs: Last Vital Signs Temp 98.0 F 11/03/22 12:43 Pulse 79 11/03/22 12:43 Resp 18 11/03/22 12:43 BP 134/73 11/03/22 12:43 Pulse Ox 100 11/03/22 11:16 O2 Del Method Room Air 11/03/22 11:16 BMI result Body Mass Index 53.1 Const: Other: General awake alert x3, resting comfortably in no acute distress.? Neck supple no JVD. CVS? regular rate rhythm, Respiratory lungs clear to auscultation, no respiratory distress, no wheeze, no rhonchi. Gastrointestinal abdomen soft, non tender, bowel sounds audible,? no guarding , no rigidity. Extremities no Neuro nonfocal Skin no rash Psych appropriate affect Objective Data Active Medications Acetaminophen (Acetaminophen 325 Mg Tablet) 650 mg PO Q6H PRN PRN Reason: Pain, Mild (Pain Scale 1-3) Lactated Ringer's (Lr) 1,000 mls @ 80 mls/hr IVCONT .[id number] [facility] Last Infusion: 11/03/22 12:15 Dose: 0 mls/hr Documented By: MAT Pantoprazole Sodium 80 mg/ (Sodium Chloride) 100 mls @ 10 mls/hr IV .Q10H [facility] Last Infusion: 11/03/22 12:15 Dose: 0 mg/hr, 0 mls/hr Documented By: MAT Ondansetron HCl (Ondansetron Hcl 4 Mg/2 Ml Vial) 4 mg IVPUSH Q8H PRN PRN Reason: Nausea and Vomiting Sodium Chloride (0.9 % Sodium Chloride Flush 3 Ml Syringe) 3 ml IVFLUSH QSHIFT [facility] Last Admin: 11/03/22 08:43 Dose: Not Given Documented By: MAT Non-Admin Reason: IV Running Labs 11/03/22 05:35 11/02/22 06:55 Labs: Laboratory Results - last 24 hr 11/01/22 11/03/22 19:50 05:35 MCV 89.3 MCH 29.0 MCHC 32.5 RDW 13.9 Plt Count 212 MPV 9.2 L Absolute Nucleated RBC 0.000 Nucleated RBC % (auto) 0.0 Blood Type O Positive Antibody Screen NEGATIVE Crossmatch See Detail Microbiology Microbiology Results: Microbiology 11/01/22 19:50 Blood Culture - Preliminary Blood - Venous No growth after 24 hours. 11/01/22 19:50 Blood Culture - Preliminary Blood - Venous No growth after 24 hours. Assessment and Plan (1) Acute blood loss anemia: Status: Acute Plan 37 years old morbidly obese male with no significant PMH who presents today with reported 2 weeks on\off melena with incident of near syncope upon getting up from toilet. Acute blood loss symptomatic anemia 2/2 GIB Admitted with Melena w positive occult, Hb of 7.1 on admission, received 2 units of packed RBC hemoglobin improved to 9.1, hemoglobin dropped again to 7.6, had 1 bowel movement last night black tarry moderate Underwent upper endoscopy that showed 12-15 mm non bleeding gastric ulcer with visible vessel lesser curvature treated with epinephrine and cautery, antral biopsies taken Normal Iron profile, CT abd negative for any abnormal findings On clear liquid diet, IV Protonix infusion and IV fluids will transfuse 1 unit of packed RBC Follow CBC, will discuss further treatment plan with GI Morbid obesity advised to lose weight, low-calorie diet DVT PPx SCDs patient will need continued hospital stay for evaluation of bleeding, , receiving blood transfusion and requiring close monitoring of CBC. Time Spent With Patient Time: Total time managing care of this patient today ____ minutes. Quality Stroke Does the patient have a stroke diagnosis?: No VTE Prior VTE?: No VTE Risk Level:: Medical - moderate - high VTE Device Contraindication: N/A - Device Ordered VTE Drug Contraindication: Treatment Not Indicated
[2022-11-03 15:52] LABS: Hemoglobin 8.6 g/dl (14.0-18.0); Mean Corpuscular HGB Conc 33.1 g/dl (31.0-36.0); Mean Corpuscular Volume 87.5 fL (80.0-98.0); Mean Platelet Volume 8.9 fL (9.4-12.4); Platelet Count 206 X10*3/uL (160-400); Red Blood Count 2.97 X10*6/uL (4.60-5.80); Red Cell Distribution Width 14.1 % (11.0-16.0); White Blood Count 6.5 X10*3/uL (4.8-10.8)
[2022-11-03] MEDS: Acetaminophen 325 MG TABLET 650 MG PO (16:27)
--- NOTE | 2022-11-03 17:32 | PM.GIPN ---
Subjective Subjective Date of Service: 11/03/22 Interval History: black stool today received 1U prbcs today Critical Care Time (minutes): 0 Physical Exam Vital Signs: Vital Signs: Last Vital Signs Temp 99.0 F 11/03/22 15:26 Pulse 79 11/03/22 15:26 Resp 16 11/03/22 15:26 BP 133/64 11/03/22 15:26 Pulse Ox 100 11/03/22 15:26 O2 Del Method Room Air 11/03/22 15:26 BMI result Body Mass Index 53.1 Const: General: cooperative GI: Other: absomen is soft and nontender Objective Data Labs 11/03/22 15:42 11/02/22 06:55 Labs: Laboratory Results - last 24 hr 11/01/22 11/03/22 11/03/22 19:50 05:35 15:42 WBC 6.1 6.5 RBC 2.62 L 2.97 L Hgb 7.6 L 8.6 L Hct 23.4 L 26.0 L MCV 89.3 87.5 MCH 29.0 29.0 MCHC 32.5 33.1 RDW 13.9 14.1 Plt Count 212 206 MPV 9.2 L 8.9 L Absolute Nucleated RBC 0.000 0.000 Nucleated RBC % (auto) 0.0 0.0 Blood Type O Positive Antibody Screen NEGATIVE Crossmatch See Detail Microbiology Microbiology Results: Microbiology 11/01/22 19:50 Blood - Venous Blood Culture - Preliminary No growth after 24 hours. 11/01/22 19:50 Blood - Venous Blood Culture - Preliminary No growth after 24 hours. Procedures Date of Service Date of Service: 11/03/22 Progress Note: A&P Assessment and plan (1) Acute GI bleeding: Status: Acute Assessment and Plan: suspect hct drop is due to ivf and equilibration continue protonix drip tonight advance diet switch to bid ppi tomorrow and recheck hct. Time Spent With Patient Time: Total time managing care of this patient today ____ minutes. Quality Stroke Does the patient have a stroke diagnosis?: No VTE Prior VTE?: No VTE Risk Level:: Medical - moderate - high VTE Device Contraindication: N/A - Device Ordered VTE Drug Contraindication: Treatment Not Indicated
[2022-11-03] MEDS: 0.9 % Sodium Chloride Flush 3 ML SYRINGE IVFLUSH (21:13)
[2022-11-04] VITALS: BP 106/53; PULSE 78; RESP 22; TEMP 36.3; O2SAT 98
[2022-11-04 03:26] VITALS: BP 135/74; PULSE 76; RESP 20; TEMP 37.1; O2SAT 96
[2022-11-04 07:34] VITALS: BP 126/73; PULSE 72; RESP 20; TEMP 36.7; O2SAT 100
[2022-11-04 07:41] LABS: Hematocrit 25.6 % (42.0-52.0); Hemoglobin 8.4 g/dl (14.0-18.0); Mean Corpuscular HGB Conc 32.8 g/dl (31.0-36.0); Mean Corpuscular Hemoglobin 29.5 pg (27.0-33.0); Mean Corpuscular Volume 89.8 fL (80.0-98.0); Mean Platelet Volume 9.4 fL (9.4-12.4); Platelet Count 208 X10*3/uL (160-400); Red Blood Count 2.85 X10*6/uL (4.60-5.80); Red Cell Distribution Width 14.5 % (11.0-16.0); White Blood Count 5.3 X10*3/uL (4.8-10.8)
[2022-11-04 07:42] LABS: Anion Gap 11 (12-20); Blood Urea Nitrogen 9 mg/dL (9-16); Calcium 8.4 mg/dL (8.4-10.2); Carbon Dioxide 22 mmol/L (22-29); Chloride 112 mmol/L (96-108); Creatinine Clr Calc Pharmacy 176.9; Estimated Glomerular Filt Rate > 60; Glucose Random 92 mg/dL (60-115); Potassium 3.9 mmol/L (3.3-5.1); Sodium 141 mmol/L (135-145)
--- NOTE | 2022-11-04 09:23 | P.PNGI_ITS ---
Subjective Subjective Date of Service: 11/04/22 Interval History: did well overnight tolerating diet Critical Care Time (minutes): 0 Physical Exam 2 Vital Signs: Vital Signs: Last Vital Signs Temp 98.0 F 11/04/22 07:34 Pulse 72 11/04/22 07:34 Resp 20 11/04/22 07:34 BP 126/73 11/04/22 07:34 Pulse Ox 100 11/04/22 07:34 O2 Del Method Room Air 11/04/22 07:34 BMI result Body Mass Index 53.1 GI: Other: abd is soft and nontender Objective Data Labs 11/04/22 06:55 11/04/22 Unknown Labs: Laboratory Results - last 24 hr 11/01/22 11/03/22 11/04/22 19:50 15:42 06:55 WBC 6.5 5.3 RBC 2.97 L 2.85 L Hgb 8.6 L 8.4 L Hct 26.0 L 25.6 L MCV 87.5 89.8 MCH 29.0 29.5 MCHC 33.1 32.8 RDW 14.1 14.5 Plt Count 206 208 MPV 8.9 L 9.4 Absolute Nucleated RBC 0.000 0.000 Nucleated RBC % (auto) 0.0 0.0 Sodium Potassium Chloride Carbon Dioxide Anion Gap BUN Creatinine Estim Creat Clear Calc Estimated GFR Random Glucose Calcium Blood Type O Positive Antibody Screen NEGATIVE Crossmatch See Detail 11/04/22 Unknown WBC RBC Hgb Hct MCV MCH MCHC RDW Plt Count MPV Absolute Nucleated RBC Nucleated RBC % (auto) Sodium 141 Potassium 3.9 Chloride 112 H Carbon Dioxide 22 Anion Gap 11 L BUN 9 Creatinine 0.73 Estim Creat Clear Calc 176.9 Estimated GFR > 60 Random Glucose 92 Calcium 8.4 Blood Type Antibody Screen Crossmatch Microbiology Microbiology Results: Microbiology 11/01/22 19:50 Blood - Venous Blood Culture - Preliminary No growth after 48 hours. 11/01/22 19:50 Blood - Venous Blood Culture - Preliminary No growth after 48 hours. Procedures Date of Service Date of Service: 11/04/22 Progress Note: A&P Assessment and plan (1) Acute GI bleeding: Status: Acute Assessment and Plan: appears stable for discharge recommend bid ppi x 4 wks then daily iron/vit c repeat egd in fall, my office will schedule may eventually need hiatal hernia repair. Time Spent With Patient Time: Total time managing care of this patient today ____ minutes. Quality Stroke Does the patient have a stroke diagnosis?: No VTE Prior VTE?: No VTE Risk Level:: Medical - moderate - high VTE Device Contraindication: N/A - Device Ordered VTE Drug Contraindication: Treatment Not Indicated
--- NOTE | 2022-11-04 10:18 | MHC.CM.PN ---
Per ROUNDS discussion, Patient will be medically cleared for dc to home today, self care.
[2022-11-04] MEDS: 0.9 % Sodium Chloride Flush 3 ML SYRINGE IVFLUSH (10:31)
--- NOTE | 2022-11-04 10:55 | P.DS_ITS ---
DS: Providers Provider Date of Service: 11/04/22 Date of admission: 11/01/22 22:47 Primary care physician: None Physician Consults: 11/01/22 22:46 Consult to Gastroenterology Routine Consulting Provider: Brian Downing Reason for consultation: Blood loss symptomatic anemia , GIB DS: Diagnosis Discharge Diagnosis (1) Acute GI bleeding: Status: Acute DS: Summary Hospital Course Hospital Course: Date of Service: 11/01/22 Chief Complaint: Melena , dizziness A 37 years old morbidly obese male with no significant PMH who presents today with reported 2 weeks on\off melena with incident of near syncope upon getting up from toilet. The patient denies any hx of NSAIDs usage, Alcohol, smoking, dyspepsia, heartburn as he uses tylenol for pain if needed. Denies any fever, chills, weight\appetite change, Prev hx of similar problem, chest pain, nausea or vomiting. For the last 2 weeks he noticed on\off incidents of melena that worsened the last 3 days with black diarrhea. he almost passed out upon standing up so he came to the hospital for further eval. In ED, found to have Hb of 7.1 with no baseline available. Positive occult stool. Admitted for futher eval and treatment. Hospital course 37 years old morbidly obese male with no significant PMH who presents today with reported 2 weeks on\off melena with incident of near syncope upon getting up from toilet, patient admitted to [facility] with a diagnosis of acute blood loss symptomatic anemia 2/2 GIB, patient admission hemoglobin was 7.1 received 2 units of packed RBC hemoglobin improved to 9.1, patient subsequently underwent upper endoscopy that showed 12-15 mm non bleeding gastric ulcer with visible vessel lesser curvature treated with epinephrine and cautery, antral biopsies taken, patient noted to have Normal Iron profile, CT abd negative for any abnormal findings, post procedure Patient hematocrit dropped again required 1 unit of packed RBC likely due to IV fluids, repeat hematocrit is stable , patient diet was gradually advanced currently tolerating regular diet with no abdominal pain, no recurrent melena ,therefore he is being discharged home on Protonix 40 mg 1 tablet twice daily for 1 month followed by Protonix 40 mg daily, he is also placed on iron and vitamin-C, patient was followed closely by Dr. Downing he will arrange for repeat upper endoscopy in fall, patient has been instructed to avoid aspirin, NSAIDs, no smoking and alcohol. Morbid obesity advised to lose weight, low-calorie diet Time Spent with Patient Time attestation: Total time managing care of this patient today ____ minutes. Discharge coordination time: Greater than 30 minutes Quality: Safe Use of Opioids Does Pt have an Active Cancer Diagnosis on the Problem List?: No Quality: Stroke Does the patient have a stroke diagnosis?: No Physical Exam Vital Signs: Vital Signs: Last Vital Signs Temp 98.0 F 11/04/22 07:34 Pulse 72 11/04/22 07:34 Resp 20 11/04/22 07:34 BP 126/73 11/04/22 07:34 Pulse Ox 100 11/04/22 07:34 O2 Del Method Room Air 11/04/22 07:34 BMI result Body Mass Index 53.1 Const: Other: General awake aler t x3, resting comf ortably in no acut e distress.? Neck supple no JVD. CVS ? regular rate rhy thm, Respiratory l ungs clear to ausc ultation, no respi ratory distress, n o wheeze, no rhonc hi. Gastrointestin al abdomen soft, n on tender, bowel s ounds audible,? no guarding , no rig idity. Extremities no Neuro nonfocal Skin no rash Psyc h appropriate affe ct DS: Data Data Completed and Pending Pending studies at discharge: Pending at discharge 11/02/22 14:48 Surgical [PTH] Routine Labs on day of discharge: Laboratory Results - last 24 hr 11/01/22 11/03/22 11/04/22 19:50 15:42 06:55 WBC 6.5 5.3 RBC 2.97 L 2.85 L Hgb 8.6 L 8.4 L Hct 26.0 L 25.6 L MCV 87.5 89.8 MCH 29.0 29.5 MCHC 33.1 32.8 RDW 14.1 14.5 Plt Count 206 208 MPV 8.9 L 9.4 Absolute Nucleated RBC 0.000 0.000 Nucleated RBC % (auto) 0.0 0.0 Sodium Potassium Chloride Carbon Dioxide Anion Gap BUN Creatinine Estim Creat Clear Calc Estimated GFR Random Glucose Calcium Blood Type O Positive Antibody Screen NEGATIVE Crossmatch See Detail 11/04/22 Unknown WBC RBC Hgb Hct MCV MCH MCHC RDW Plt Count MPV Absolute Nucleated RBC Nucleated RBC % (auto) Sodium 141 Potassium 3.9 Chloride 112 H Carbon Dioxide 22 Anion Gap 11 L BUN 9 Creatinine 0.73 Estim Creat Clear Calc 176.9 Estimated GFR > 60 Random Glucose 92 Calcium 8.4 Blood Type Antibody Screen Crossmatch Preliminary micro results at discharge 11/01/22 19:50 Blood Culture - Preliminary Blood - Venous No growth after 48 hours. 11/01/22 19:50 Blood Culture - Preliminary Blood - Venous No growth after 48 hours. Discharge Plan Discharge Anticipated Discharge Date/Time: 11/04/22 10:50 Patient Disposition: Home, Self-Care Discharge Diagnosis: Symptomatic acute GI blood loss anemia Referrals: Physician,None [Primary Care Provider] - 1 Week Discharge Medications: New omeprazole 40 mg Capsule,Delayed Release(Dr/Ec) 40 mg PO BID@0630,1630 Qty: 60 0RF No Action No Known Home Meds Discharge Orders: Discharge Order (Routine); Ordered 11/04/22 Ordered By: Nsah Muse Diet: Advance to usual diet Activity on Discharge: As tolerated Stand Alone Forms: Patient Portal Discharge page Care Plan Goals: Take Prilosec 40 mg 1 tablet twice daily for 30 days then Prilosec 40 mg 1 tablet daily Avoid alcohol, no smoking, minimize caffeine intake No aspirin, no Advil, no Motrin or any related drugs Return to check with recurrent episode of bloody stool, lightheadedness or dizziness Health Concerns: As above Plan of Treatment: Outpatient follow-up with Dr. Downing for repeat upper endoscopy in December or January Outpatient follow-up with primary care physician for refill on prilosec Assessment: As above
[2022-11-04 11:18] VITALS: BP 130/70; PULSE 72; RESP 20; TEMP 37.1; O2SAT 100
--- NOTE | 2022-11-05 07:52 | P.CDIM_ITS ---
PROVIDER RESPONSE TEXT: To clarify, the appropriate diagnosis supported by the clinical indicators: Acute QUERY TEXT: PHYSICIAN'S DOCUMENTATION REQUEST Date of Query: 11/04/2022 09:23 AM EDT Patient Name: Jm Madden Admit Date: 11/02/2022 Dear Nash Muse, A review of the medical record indicates additional documentation may be needed. Please review below and update the documentation accordingly. Clinical Indicators: Per Hospitalist Progress Note 11/03/22: Underwent upper endoscopy that showed 12-15 mm non bleeding gastric ulcer with visible vessel lesser curvature treated with epinephrine and cautery, antral biopsies taken Clarify which of the following accurately represents the acuity of the gastric ulcer. Possible options might include: Acute Acute on chronic Chronic stable condition Other (explain)Clinically unable to determine (explain)Thank you, Bren Adorno RN Use of terms such as suspected, likely, concern for, or probable (associated with a specific diagnosi s that is being evaluated, monitored, or treated as if it exists) are acceptable and can be coded in the inpatient se tting, when documented at the time of discharge. Please use your independent medical judgment in providing your response. THIS QUERY IS PART OF THE PERMANENT MEDICAL RECORD
== END 2022-11-04 12:30 | disposition home or self-care (01) | DRG 241 ==
LOC: HO.ED 20:05 → HO.EDOVER 22:51 → HO.IMC 11-02 15:25
PROVIDERS: Internal Medicine Gastroenterology; Admitting Provider Student in an Organized Health Care Education/Training Program; Emergency Provider Emergency Medicine; Visit Provider Hospitalist
PROC: 0DB78ZX Excision of Stomach, Pylorus, Via Natural or Artificial Opening Endoscopic, Diagnostic (ICD-10-PCS; principal; 2022-11-02 14:30)
DX: K25.0 Acute gastric ulcer with hemorrhage (principal); Z68.43 Body mass index [BMI] 50.0-59.9, adult; E66.01 Morbid (severe) obesity due to excess calories; D62 Acute posthemorrhagic anemia; Z71.3 Dietary counseling and surveillance
CPT/HCPCS: 36415; 74178; 80048; 80053; 82272; 83540; 83605; 84484; 85014; 85018; 85025; 85027; 85610; 86850; 86900; 86901; 86923; 87040; 88305; 88342; 93005; 99285; J0171; J2250; P9016; Q9967

== ENCOUNTER → 2022-11-01 22:47 | Outpatient (BNV) | payer OTHER, SELFPAY | PROVIDERS: Admitting Provider Student in an Organized Health Care Education/Training Program; Emergency Provider Emergency Medicine; Visit Provider Student in an Organized Health Care Education/Training Program | DX: D62 Acute posthemorrhagic anemia (principal) | CPT/HCPCS: 99223; 99233 ==

== ENCOUNTER 2023-02-08 06:16 | Day surgery (SDC) | payer OTHER, SELFPAY ==
--- NOTE | 2023-02-07 09:09 | P.CONAN_ITS ---
Documented by User: Carmela Moncada NP 02/07/23 09:11 HPI - Anesthesia Eval Consult details Narrative: 37yo M for Upper Endoscopy [facility] Active Problems Active Problems: All Active Problems (Updated 11/12/22 @ 00:03 by Re Mckenna) Anemia (Acute) Past Medical History Medical History Morbid obesity with BMI of 50.0-59.9, adult Family History Family history of problems with anesthesia: No Surgical History Surgical History (Updated 02/08/23 @ 06:28 by Vicenta Currie, CHRISTOFER) Hx of esophagogastroduodenoscopy History of Problems with Anesthesia: No Social History Social History Household Members: Spouse Housing: House Do you presently have visiting nurse or other home services: No Alcohol intake: current Alcohol intake frequency: does not drink Alcohol type: beer Patient Tobacco Use Status: Never used Tobacco Second Hand Smoke Exposure: No Are you DNR?: No Advance Directives: No Advance Directives Information Provided: Yes Nutrition Risks: No Nutritional Risk service: No Meds Allergies Allergy/AdvReac Type Severity Reaction Status Date / Time No Known Allergies Allergy Verified 02/08/23 06:28 Exam Pertinent Lab Results Pertinent Lab Results: Laboratory Tests 11/04/22 11/04/22 11/04/22 06:55 06:55 Unknown WBC 5.3 Hgb 8.4 L Hct 25.6 L Plt Count 208 Sodium 141 Potassium 3.9 Chloride 112 H Carbon Dioxide 22 BUN 9 Creatinine 0.73 Assessment and Plan Assessment Anesthesia Assessment: Chart Reviewed Final Anesthetic Review Family History of Problems with Anesthesia: No History of Problems with Anesthesia: No Documented by User: Obed Herbert MD 02/08/23 07:20 [facility] Past Medical History Medical History Morbid obesity with BMI of 50.0-59.9, adult Surgical History Surgical History (Updated 02/08/23 @ 06:28 by Vicenta Currie RN) Hx of esophagogastroduodenoscopy Social History Social History Household Members: Spouse Housing: House Do you presently have visiting nurse or other home services: No Alcohol intake: current Alcohol intake frequency: does not drink Alcohol type: beer Patient Tobacco Use Status: Never used Tobacco Second Hand Smoke Exposure: No Are you DNR?: No Advance Directives: No Advance Directives Information Provided: Yes Nutrition Risks: No Nutritional Risk service: No Meds Allergies Allergy/AdvReac Type Severity Reaction Status Date / Time No Known Allergies Allergy Verified 02/08/23 06:28 Exam Airway Mallampati Class: III TM Dist: >3cm Neck ROM: Limited Heart: rrr Lungs: cta Assessment and Plan Assessment Anesthesia Assessment: Anesthesia Plan Discussed Final Anesthetic Review NPO: Yes ASA Class: III Final Preanesthetic Review: No Changes in Pt Med Stat, Meds/Allgs Chart Reviewed, Consent Obtained/Reviewed and Anes Risks/Benef Reviewed Patient Risk: Intermediate Procedure Risk: Intermediate Anesthetic Plan Anesthetic Plan: GA and Agree w/ Assess. and Plan Disposition: Standard PACU
[2023-02-08 06:27] VITALS: BMI 44.4
[2023-02-08] MEDS: Lactated Ringers 1,000 ML 100 ML IVCONT (06:41)
[2023-02-08 06:53] VITALS: BP 140/93; PULSE 72; RESP 18; TEMP 36.8; O2SAT 97
--- NOTE | 2023-02-08 07:30 | P.HPSUR_ITS ---
Pre-Procedural Eval Section A Date of Service: 02/08/23 Section B Chief Complaint: Helicobacter pylori [H. pylori] as the cause of di Details of Present Illness: see H*P and addendum Relevant Family History (Specify if Yes): No Relevant Social History: None Present Medications: see Short Stay Collaborative assessment Medical History: No relevant PMH History of Previous Operations: No relevant previous surgery Allergies: Allergies Allergy/AdvReac Type Severity Reaction Status Date / Time No Known Allergies Allergy Verified 02/08/23 06:28 Review of Systems Sugical H&P ROS: Negative: Constitution, Cardiovascular, Respiratory, Neur ological, Psychiatric, Hem-Onc, Allergic/Immunologic, Gastrointestinal, Genitourinary, Musculoskeletal, Integumentary, Endocrine and Eyes/Ears/Nose/Throat Exam Surgical H&P Exam: Normal: HEENT, Normal: Heart, Normal: Lungs, Normal: Extremities, Normal: Abdomen, Normal: Skin and Normal: Neurological Plan Diagnosis/Plan: Unchanged I have reviewed the history and physical and performed a pertinent physical examination on my patient. No changes have occurred unless specified. Time Spent With Patient Time: Total time managing care of this patient today ____ minutes.
[2023-02-08 07:49] VITALS: BP 165/98; PULSE 8; RESP 16; TEMP 36.5; O2SAT 100
[2023-02-08 08:04] VITALS: BP 132/79; PULSE 70; RESP 18; O2SAT 99
--- NOTE | 2023-02-08 08:09 | OP_ITS ---
DATE OF SERVICE: 02/08/2023 SURGEON: Brian Downing MD INDICATIONS: Peptic ulcer disease. PREOPERATIVE DIAGNOSIS: POSTOPERATIVE DIAGNOSIS: PROCEDURE PERFORMED: Upper endoscopy with biopsy. ESTIMATED BLOOD LOSS: COMPLICATIONS: ANESTHESIA: Monitored anesthesia care. ASSISTANTS: SPECIMENS: DESCRIPTION OF PROCEDURE: A history and physical was performed. The risks and benefits of the procedure were explained to the patient. Informed consent was obtained. The patient was placed in the left lateral decubitus position. The Olympus video gastroscope was introduced into the esophagus, stomach, and duodenum. Examination was performed. The scope was removed. He tolerated the procedure well and was taken to recovery in stable condition. FINDINGS: Esophagus: The esophagus was normal. There was no esophagitis. There was some slight nonspecific narrowing at the EG junction. The scope passed into a hiatal hernia with no difficulty. There was a 5 cm hiatal hernia. Stomach: The stomach showed no evidence of masses, ulcers, or polyps. Antral biopsies were obtained to evaluate for H pylori. Duodenum: The bulb and second portion were normal. There were no ulcers present. IMPRESSION: 1. Hiatal hernia. 2. Peptic ulcer disease. RECOMMENDATION: Follow up the biopsy results. MD RAFY Banda/VIKASH / [id number]
[2023-02-08 08:19] VITALS: BP 137/77; PULSE 51; RESP 16; TEMP 36.5; O2SAT 99
== END 2023-02-08 08:37 | disposition home or self-care (01) ==
PROVIDERS: Visit Provider Internal Medicine Gastroenterology
PROC: 0DJ08ZZ Inspection of Upper Intestinal Tract, Via Natural or Artificial Opening Endoscopic (ICD-10-PCS; CPT 43235; principal; 2023-02-08 07:30)
DX: K44.9 Diaphragmatic hernia without obstruction or gangrene (principal); K27.9 Peptic ulcer, site unspecified, unspecified as acute or chronic, without hemorrhage or perforation; D64.9 Anemia, unspecified
CPT/HCPCS: 43239; 88305; 88342; J2704

== ENCOUNTER 2023-05-18 14:19 | Outpatient (AMB) | payer OTHER, SELFPAY ==
[2023-05-18 14:29] VITALS: BP 130/72; PULSE 88; O2SAT 97; BMI 45.8
--- NOTE | 2023-05-18 14:29 | A.OFFPC_ITS ---
Vital Signs 05/18/23 14:29 Height 6 ft 3 in Weight 366 lb 2 oz BMI 45.8 BP 130/72 Blood Pressure Location Lt brachial Position Sitting Pulse 88 Pulse Source Pulse Oximeter Pulse Oximetry (%) 97 Oxygen Delivery Method Room Air Intake Visit Reasons: New patient-Requesting physical Intake Note: pt is here for new patent, requesting physical. patient has hx of ulcers, followed by dr jeronimo (GI) Social Media Marketing Specialist Required: No Accompanied by: Self / Same As Patient Allergies No Known Allergies Allergy (Verified 05/18/23 17:15) Medication List - Last Reconciled 05/18/23 by ANNETTE Azar ascorbic acid (vitamin C) 250 mg PO BID ferrous sulfate 324 mg PO BIDWM Tobacco use date assessed: 05/18/23 Dental Screening Dental Screen Date: 05/18/23 Did you have a dental visit in the last 12 months?: Yes Did you have a dental problem in the last 6 months where you did not have access to dental care?: No Was dental information given to patient?: Patient has dentist HPI New patient-Requesting physical HPI Details New pt is here for a PE. Will order labs. Pt had a GI ulceration. He is taking iron. Will check iron and ferritin. 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 1. Little interest or pleasure in doing things: not at all 2. Feeling down, depressed, or hopeless: not at all 3. Trouble falling or staying asleep, or sleeping too much: several days 4. Feeling tired or having little energy: several days 5. Poor appetite or overeating: not at all 6. Feeling bad about yourself - or that you are a failure or have let yourself or your family down: not at all 7. Trouble concentrating on things, such as reading the newspaper or watching television: not at all 8. Moving or speaking so slowly that other people could have noticed. Or the opposite - being so fidgety or restless that you have been moving around a lot more than usual: not at all 9. Thoughts that you would be better off or of hurting yourself in some way: not at all Total score: 2 Depression Screening Interpretation: Negative Depression Screening Done: Yes 68543 - PHQ-9 Billing: Yes Source: Developed by Drs. Musa Kincaid, Hayley Phillips, Layo Lemus and colleagues, with an educational alivia from [employer]. Thrive Questionnaire Date Thrive assessed: 05/18/23 I am a: Patient What is your living situation today?: I have a steady place to live Within the past 12 months, did the food you bought not last and you didn't have the money to get more?: Never true Within the past 12 months, did you worry whether your food would run out before you got money to buy more?: Never true Do you have trouble paying for medicines?: No Do you have trouble getting transportation to medical appointments?: No Do you have trouble paying your heating and electricity bill?: No Do you have trouble taking care of your child, family member or friend?: No Do you have trouble with day-to-day activities such as bathing, preparing meals, shopping, managing finances, etc.?: No Are you currently unemployed and looking for a job?: No Are you interested in more education?: No Please select the resources that you would like help with: None Currently or been in a relationship where the following occur: no concerns reported THRIVE Score: 0 AUDIT C Alcohol Use Questionnaire (AUDIT-C) 1. How often do you have a drink containing alcohol?: 2-4 times a month 2. How many drinks containing alcohol do you have on a typical day when you are drinking?: 1 or 2 3. How often do you have six or more drinks on one occasion?: Never Total Score: 2 Score Reviewed/Action Taken: Yes KONG-7 AMB Questionnaire KONG-7 Date KONG - 7 assessed: 05/18/23 Feeling nervous, anxious, or on edge: 0 = Not at all Not being able to stop or control worryin = Not at all Worrying too much about different things: 0 = Not at all Trouble relaxin = Not at all Being so restless that it is hard to sit still: 0 = Not at all Becoming easily annoyed or irritable: 0 = Not at all Feeling afraid as if something awful might happen: 0 = Not at all Total KONG-7 score (0-4 normal; 5-9 mild; 10-14 moderate; 15-21 severe): 0 Source: Developed by Drs. Musa Kincaid, Hayley Phillips, Layo Lemus and colleagues, with an educational alivia from [employer]. KONG-7 Assessment Billing KONG-7 Assessment Tool: KONG-7 Assessment 94490 Review of Systems Const Denies chills and Denies fever(s) Eyes Denies blurry vision ENT Denies vertigo, Denies dizziness and Denies sore throat Card Denies chest pain at rest, Denies chest pain with activity, Denies diaphoresis, Denies dyspnea and Denies dyspnea on exertion Resp Denies cough, Denies dyspnea, Denies dyspnea on exertion and Denies wheezing GI Denies abdominal pain, Denies melena, Denies hematochezia, Denies constipation, Denies diarrhea and Denies loose stools Denies hematuria Musc Denies numbness and Denies tingling Skin/Breast Denies lesions Neuro Denies vertigo, Denies dizziness, Denies numbness and Denies tingling Psych Denies anxiety, Denies depression, Denies homicidal ideation, Denies suicidal ideation and Denies other (substance abuse) Aller/Immun Denies wheezing Physical exam (Primary Care) Vital Signs: Last Vital Signs Pulse 88 05/18/23 14:29 BP 130/72 05/18/23 14:29 Pulse Ox 97 05/18/23 14:29 Oxygen Delivery Method Room Air 05/18/23 14:29 BMI result Body Mass Index 45.8 Tobacco/Smoking Status: Tobacco use Status Tobacco use date assessed 05/18/23 05/18/23 14:30 Patient Tobacco Use Status Never used Tobacco 05/18/23 14:30 e-Cigarette/Vaping Use Never Used 05/18/23 14:30 PHQ-9: PHQ-9 Score PHQ-9: Total score 2 05/18/23 14:54 Depression Screening Interpretation: Negative Thrive Assessment: Date of Thrive Assessment Date Thrive assessed 05/18/23 05/18/23 14:30 Currently or been in a relationship where the following occur: no concerns reported Const General: cooperative Nutritional Appearance: obese morbidly obese Orientation/consciousness: patient oriented x3 HENMT Head: Yes normal to inspection, Yes normocephalic and Yes atraumatic Ears: TM's normal bilaterally Eyes General: appearance normal, both eyes and all related structures Alignment and Position: alignment normal and position normal Neck Neck: Yes normal visual inspection and Yes no lymphadenopathy Thyroid: Thyroid normal Resp Effort & Inspection: normal respiratory effort Auscultation: clear to auscultation bilaterally Cardio Rate: regular rate Rhythm: regular rhythm Heart sounds: S1 normal heart sound present, S2 normal heart sound present and no murmurs GI Palpation (GI): Soft to palpation and nontender Auscultation: normal bowel sounds Male General Exam: Yes normal external exam Penis: normal penis Scrotum: scrotum normal, testes descended bilaterally and no inguinal hernias Testes: no testicular mass Skin Rashes: no rashes Neuro General: patient oriented x3, moves all extremities, no focal motor deficits and deep tendon reflexes 2+ bilaterally Romberg Test: Negative Psych Appearance: grossly normal Mental Status: mental status grossly normal Speech and movement: Normal speech and movement present Affect: normal affect Attitude: cooperative Thought process: Normal thought process present Thought content: Normal thought content present Insight: Good insight present (Psych) Judgement: Good judgement present (Psych) Assessment and Plan Assessment & Plan (1) Physical exam: Code(s): Z00.00 - Encounter for general adult medical examination without abnormal findings Plan: Labs ordered (2) Anemia: Code(s): D64.9 - Anemia, unspecified Plan: Labs ordered Plan The patient agreed to the use of a medical recruiter for this encounter. Scribed for ANNETTE Walker by Shanell Rodríguez medical recruiter, on 05/18/2023 at 14:50 EST. Orders: Orders Comprehensive [place]man. Panel Fast Today Z00.00 - Encounter for general adult medical examination without abnormal findings TSH reflex Free T4 Today Z00.00 - Encounter for general adult medical examination without abnormal findings IRON PROFILE Today D64.9 - Anemia, unspecified Complete Blood Count Auto Diff Today Z00.00 - Encounter for general adult medical examination without abnormal findings UA CC w/rflx Micro + Cult Today Z00.00 - Encounter for general adult medical examination without abnormal findings Lipid Panel Today Z00.00 - Encounter for general adult medical examination without abnormal findings Ferritin Today D64.9 - Anemia, unspecified Coding Level of Care Code New Pt Prev Care 18-39yr(14058 Diagnoses Physical exam Z00.00 Anemia D64.9 Additional Codes KONG-7 Assessment Billing - KONG-7 Assessment Tool: KONG-7 Assessment 32253 ([id number])
== END 2023-05-18 15:05 | disposition home or self-care (01) ==
PROVIDERS: PCP Nurse Practitioner Family; Visit Provider Nurse Practitioner Family
DX: Z00.00 Encounter for general adult medical examination without abnormal findings (principal); D64.9 Anemia, unspecified
CPT/HCPCS: 99385

== ENCOUNTER 2023-10-07 08:07 | Outpatient (AMB) | payer OTHER, SELFPAY ==
--- NOTE | 2023-10-07 08:16 | AM.OFFWIN_ITS ---
Intake Vital Signs 10/07/23 08:17 Height 6 ft 3 in Weight 350 lb BMI 43.7 BP 114/78 Blood Pressure Location Lt radial Position Sitting Pulse 54 Pulse Source Pulse Oximeter Temp 98.3 F Temp Source Oral Pulse Oximetry (%) 98 Oxygen Delivery Method Room Air Intake Visit Reasons: EP Lower AB pain/unable to urinate Intake Note: pt c/o Lower abdominal pain and unable to urinate, Started yesterday afternoon Patient Tobacco Use Status: Never used Tobacco Allergies No Known Allergies Allergy (Verified 10/07/23 08:17) Do you need a note to return to daycare/school/sports/work: No HPI HPI Comments History of Present Illness Details Patient is a 38-year-old male complaining of 2 days of right lower abdominal pain are for the past 2 days. He says it started in his back and now it is moving around the right flank. He was unable to urinate last night but he was able to urinate this morning. He states the pain was so bad he did not eat dinner last night. He states the pain comes and goes but he has never felt pain like that before. He states his family told him it was a kidney stone because many members of his family have had them. He denies any fever. He did not take any medications to treat his pain. 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 Current occupational exposures/hazards: No Cognitive needs: No Hearing needs: No Vision needs: No Review of Systems Const All systems reviewed & are unremarkable except as noted in HPI and below Physical Exam Vital Signs: Last Vital Signs Temp 98.3 F 10/07/23 08:17 Pulse 54 10/07/23 08:17 BP 114/78 10/07/23 08:17 Pulse Ox 98 10/07/23 08:17 Oxygen Delivery Method Room Air 10/07/23 08:17 BMI result Body Mass Index 43.7 Const General: cooperative, healthy appearing, comfortable, no acute distress and well developed Orientation/consciousness: patient oriented x3 Limitations: no limitations HEENT Head: Yes normal to inspection Eyes General: appearance normal, both eyes and all related structures Neck Neck: Yes normal visual inspection and Yes full ROM Resp Effort & Inspection: normal respiratory effort and able to speak in complete sentences GI Inspection: Yes normal to inspection Palpation (GI): Soft to palpation and nontender General: Yes CVA tenderness (right side) and Yes no CVA tenderness (left side) Back/Spine/Pelvis Back: no CVA tenderness (left side) and CVA tenderness (right side) Skin General skin exam: no rashes or lesions noted Neuro General: patient oriented x3 Extrem General: Yes normal to inspection Results AMB Urinalysis, Automated UA Leukoctes 0 Vandana/uL Last Edit by Mian Vasquez CMA on 10/07/23 08:29 UA Nitrite Negative Last Edit by Mian Vasquez CMA on 10/07/23 08:29 UA Urobilinogen 0.2 mg/dL Last Edit by Mian Vasquez CMA on 10/07/23 08:29 UA Protein 0 mg/dL Last Edit by Mian Vasquez CMA on 10/07/23 08:29 UA pH 6.0 Last Edit by Mian Vasquez CMA on 10/07/23 08:29 UA Blood 80 Cleve/uL Last Edit by Mian Vasquez CMA on 10/07/23 08:29 UA Specific [place] 1.015 Last Edit by Mian Vasquez CMA on 10/07/23 08:29 UA Ketone Positive Last Edit by Mian Vasquez CMA on 10/07/23 08:29 UA Bilirubin 0 mg/dL Last Edit by Mian Vasquez CMA on 10/07/23 08:29 UA Glucose 0 mg/dL Last Edit by Mian Vasquez CMA on 10/07/23 08:29 Results Reviewed Results Reviewed: Laboratory Last Values Urine pH (Auto) 6.0 10/07/23 08:28 Specific [place] (Auto) 1.015 10/07/23 08:28 Urine Protein (Auto) 0 mg/dL 10/07/23 08:28 Glucose (UA)(Auto) 0 mg/dL 10/07/23 08:28 Urine Ketones (Auto) Positive 10/07/23 08:28 Urine Blood (Auto) 80 Cleve/uL 10/07/23 08:28 Urine Nitrite (Auto) Negative 10/07/23 08:28 Urine Bilirubin (Auto) 0 mg/dL 10/07/23 08:28 Urine Urobilinogen (Auto) 0.2 mg/dL 10/07/23 08:28 Leukocyte Esterase (Auto) 0 Vandana/uL 10/07/23 08:28 Assessment & Plan Assessment & Plan (1) Kidney stone on right side: Code(s): N20.0 - Calculus of kidney Plan: UA was positive for blood and ketones, likely kidney stone, sent to ED for further workup, rule out hydronephrosis. Called [facility] ED with expect Plan See above Orders: Orders AMB Urinalysis Automated Today Z13.9 - Encounter for screening, unspecified Coding Level of Care Code Est Pt Level 5 (84349) Diagnoses Kidney stone on right side N20.0
[2023-10-07 08:17] VITALS: BP 114/78; PULSE 54; TEMP 36.8; O2SAT 98; BMI 43.7
== END 2023-10-07 08:46 | disposition home or self-care (01) ==
PROVIDERS: PCP Nurse Practitioner Family; Visit Provider Physician Assistant
DX: N20.0 Calculus of kidney (principal)
CPT/HCPCS: 81003; 99214

== ENCOUNTER 2023-10-07 09:10 | Emergency (ER) | payer OTHER, SELFPAY ==
--- NOTE | ~2023-10-07 | CT_ITS ---
EXAMINATION: CT ABDOMEN AND PELVIS WITHOUT CONTRAST CLINICAL INFORMATION: Abdominal pain and right flank pain COMPARISON: CT of 11/01/2022 TECHNIQUE: Multidetector volumetric imaging was performed from the superior aspect of the liver through the pubic symphysis. Sagittal and coronal reformatted images were obtained on the technologist's workstation. This CT examination was performed using dose optimization techniques as appropriate, variously including the following: *Automated exposure control *Adjustment of mA and/or kV according to patient size (this includes techniques or standardized protocols for targeted exams where dose is matched to indication/reason for exam; i.e. extremities or head) *Use of iterative reconstruction technique DLP: 1165 mGy-cm FINDINGS: LUNG BASES: The visualized lung bases are unremarkable. There is a large sliding hiatal hernia. LIVER, GALLBLADDER, AND BILIARY TREE: The liver is normal in size, shape, and attenuation. No focal hepatic lesion or biliary ductal dilatation is present. The gallbladder is unremarkable with no evidence of radiopaque gallstones, gallbladder wall thickening, or obvious pericholecystic inflammatory changes. PANCREAS: Unremarkable. SPLEEN: Unremarkable. ADRENAL GLANDS: Unremarkable. KIDNEYS AND URETERS: Mild right hydroureter is present to the level of a 4 x 2 mm calculus in the distal right ureter, just proximal to the right ureterovesical junction. The calculus measures approximately 160 Hounsfield units. No intrarenal calculi are detected. The left kidney and ureter image normally. BLADDER: Unremarkable. GASTROINTESTINAL TRACT: The small and large bowel are unremarkable. The appendix is unremarkable. ABDOMINAL WALL: There is a fat-containing left inguinal hernia. LYMPH NODES: Normal. VASCULAR: Unremarkable. PELVIC VISCERA: Unremarkable. OSSEOUS STRUCTURES: Unremarkable. CT/CT abdomen pelvis wo IV con IMPRESSION: Mild right hydroureter to the level of a 4 x 2 mm distal ureteral calculus just proximal to the right ureterovesical junction. Fleischner guidelines were followed.
--- NOTE | 2023-10-07 09:27 | ED.MALEGU ---
HPI - Male Genitourinary General Chief complaint: Urogenital-Male Stated complaint: blood in urine Time Seen by Provider: 10/07/23 09:26 Source: patient Mode of arrival: EMS Limitations: no limitations History of Present Illness HPI Narrative: 38-year-old male who has been here before concern for dark stools found to have a GI bleed presents today with right-sided flank pain. He states it has been coming going initially had the urgency to pee but was not paying much. He denies any blood in his urine he denies any falls or injuries states he has never had a kidney stone in the past he has not taken anything for the pain MD Complaint: dysuria Related Data Home Medications ?Medication ?Instructions ?Recorded ?Confirmed No Known Home Meds 10/07/23 10/07/23 Allergies Allergy/AdvReac Type Severity Reaction Status Date / Time No Known Allergies Allergy Verified 10/07/23 09:31 Review of Systems Review of Systems: Review of systems: General: Patient denies any fever chills recent illness or falls Musculoskeletal: Denies back pain or body aches or other injuries HEENT: denies headache, runny nose, ear pain Respiratory: denies shortness of breath, cough Cardiovascular: no chest pain or palpitations : denies dysuria, frequency Abdomen: no nausea vomiting denies abdominal pain Extremities: no swelling, no pain Skin: no diaphoresis Yes all other systems are reviewed and are negative PMFSH Past Medical History Medical History Morbid obesity with BMI of 50.0-59.9, adult Surgical History Hx of esophagogastroduodenoscopy Family History Family History Mother High blood pressure PCOS (polycystic ovarian syndrome) Father Heart problem Social History Social History Household Members: Spouse Housing: House Do you presently have visiting nurse or other home services: No Alcohol intake: never Patient Tobacco Use Status: Never used Tobacco Smoked in Last 30 Days: No e-Cigarette/Vaping Use: Never Used Second Hand Smoke Exposure: No Use of substances other than those prescribed or required for medical reasons: No Advance Directives: No Advance Directives Information Provided: Yes service: No 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 Current occupational exposures/hazards: No Cognitive needs: No Hearing needs: No Vision needs: No Physical Exam Vital Signs: Vital Signs: Last Vital Signs Temp 99 F 10/07/23 10:15 Pulse 69 10/07/23 10:15 Resp 18 10/07/23 10:15 BP 132/85 10/07/23 10:15 Pulse Ox 95 10/07/23 10:15 O2 Del Method Room Air 10/07/23 10:15 BMI result Body Mass Index 42.9 General: Well-appearing well-nourished in no signs of distress HEENT: Normocephalic atraumatic Neck: No signs of JVD, no masses no tenderness or lymphadenopathy Cardiovascular: Regular rate and rhythm Respiratory: Clear to auscultation bilaterally Abdomen: Soft nontender no masses no CVA tenderness Extremities: Normal pedal pulses no signs of edema Skin: Dry warm no rashes Back: No tenderness full ROM Course Course Course Narrative: Pain is well controlled patient is sipping water in the room I do think there is a small stone on the right side above the ureter I do feel the patient safe to go home the patient follow up with Urology. Medications Administered Discontinued Medications Generic Name Dose Route Start Last Admin Trade Name Freq PRN Reason Stop Dose Admin Sodium Chloride 1,000 mls @ 999 mls/hr 10/07/23 09:45 10/07/23 09:42 Ns IV 10/07/23 10:45 999 mls/hr .Q1H1M BORA Administration Ketorolac Tromethamine 15 mg 10/07/23 09:31 10/07/23 10:03 Ketorolac Tromethamine 15 Mg/Ml Vial IVPUSH 10/07/23 09:32 15 mg ONCE ONE Administration Medical Decision Making Medical Decision Making [facility] Narrative: I will send for urine CBC BMP CT fluids and toradol and reassess Differential Diagnosis Differential Diagnoses: The differential diagnosis associated with the presentation includes Hematuria UTI bladder cancer dehydration electrolyte abnormality anemia kidney stone Lab Data 10/07/23 09:41 10/07/23 09:41 Labs: Lab Results 10/07/23 10/07/23 Range/Units 09:41 10:18 WBC 6.1 (4.8-10.8) X10*3/uL RBC 5.06 D (4.60-5.80) X10*6/uL Hgb 14.8 D (14.0-18.0) g/dl Hct 43.6 D (42.0-52.0) % MCV 86.2 (80.0-98.0) fL MCH 29.2 (27.0-33.0) pg MCHC 33.9 (31.0-36.0) g/dl RDW 12.5 (11.0-16.0) % Plt Count 200 (160-400) X10*3/uL MPV 9.2 L (9.4-12.4) fL Immature Gran % (Auto) 0.2 (0.0-0.4) % Neut % (Auto) 73.0 (45-73) % Lymph % (Auto) 17.5 L (20-40) % [place] % (Auto) 8.0 (2-11) % Eos % (Auto) 0.8 (0-4) % Baso % (Auto) 0.5 (0-2) % Lymph # (Auto) 1.1 L (1.2-4.9) X10*3/uL [place] # (Auto) 0.5 (0.1-1.2) X10*3/uL Eos # (Auto) 0.1 (0.0-0.4) X10*3/uL Baso # (Auto) 0.0 (0.0-0.2) X10*3/uL Abs Immat Gran (auto) 0.01 (0.00-0.03) X10*3/uL Absolute Neuts (auto) 4.5 (2.0-8.3) x10*3/uL Absolute Nucleated RBC 0.000 (0.0-0.012) X10*3/uL Nucleated RBC % (auto) 0.0 (0.0-0.2) /100WBC Sodium 140 (135-145) mmol/L Potassium 3.9 (3.3-5.1) mmol/L Chloride 106 (96-108) mmol/L Carbon Dioxide 27 (22-29) mmol/L Anion Gap 11 L (12-20) BUN 12 (9-16) mg/dL Creatinine 0.85 (0.5-1.4) mg/dL Estim Creat Clear Calc 191.9 Estimated GFR > 60 Random Glucose 128 H (60-115) mg/dL Calcium 9.2 D (8.4-10.2) mg/dL Total Bilirubin 1.0 (0.0-1.0) mg/dL AST 18 (5-37) U/L ALT 13 (0-40) U/L Alkaline Phosphatase 70 (39-117) U/L Total Protein 6.5 (6.5-8.0) g/dL Albumin 4.1 (3.5-5.0) g/dL Urine Color Yellow Urine Appearance Clear Urine pH 5.5 (5.0-9.0) Ur Specific [place] 1.015 (1.005-1.025) Urine Protein Negative (Neg-Trace) mg/dL Urine Glucose (UA) Negative (Negative) mg/dL Urine Ketones Trace (Negative) mg/dL Urine Blood Small (1+) H (Negative) Urine Nitrite Negative (Negative) Ur Leukocyte Esterase Negative (Negative) Urine RBC 0-2 (0-2) /HPF Urine WBC 0-5 (0-5) /HPF Ur Squamous Epith Cells 0-2 (0-2) /HPF Urine Bacteria None Seen (None Seen) Hyaline Casts 0-2 (0-2) /LPF Discharge Plan Discharge Clinical Impression: Kidney stone on right side Patient Disposition: Home, Self-Care Instructions: Kidney Stones (ED) Additional Instructions: You were seen today for a kidney stone. You had urine sent there was no signs of infection your blood work was also unremarkable please call follow up with the urologist can take Tylenol ibuprofen for pain. If you have any other concerns please do not hesitate to come back to emergency department. Prescriptions: No Action No Known Home Meds Referrals: Beto Hernandez MD [Physician] - (Please call follow up for your kidney stone. Please take Tylenol ibuprofen for pain. If you have any other concerns please do not hesitate to come back to the emergency department) Print Language: Gibraltarian
[2023-10-07 09:28] VITALS: BP 132/85; PULSE 91; RESP 18; TEMP 37.4; O2SAT 97; BMI 42.9
[2023-10-07] MEDS: 0.9 % Sodium Chloride 1,000 ML 999 ML IV (09:42)
[2023-10-07 09:47] LABS: MANUAL DIFF FLAG NO
[2023-10-07 10:01] LABS: Basophils Percent Auto 0.5 % (0-2); Eosinophils Absolute Auto 0.1 X10*3/uL (0.0-0.4); Eosinophils Percent Auto 0.8 % (0-4); Hematocrit 43.6 % (42.0-52.0); Hemoglobin 14.8 g/dl (14.0-18.0); Imm Gran Abs Auto 0.01 X10*3/uL (0.00-0.03); Imm Gran Pct Auto 0.2 % (0.0-0.4); Lymphocytes Absolute Auto 1.1 X10*3/uL (1.2-4.9); Lymphocytes Percent Auto 17.5 % (20-40); Mean Corpuscular HGB Conc 33.9 g/dl (31.0-36.0); Mean Corpuscular Hemoglobin 29.2 pg (27.0-33.0); Mean Corpuscular Volume 86.2 fL (80.0-98.0); Mean Platelet Volume 9.2 fL (9.4-12.4); Monocytes Absolute Auto 0.5 X10*3/uL (0.1-1.2); Neutrophils Absolute Auto 4.5 x10*3/uL (2.0-8.3); Platelet Count 200 X10*3/uL (160-400); Red Blood Count 5.06 X10*6/uL (4.60-5.80); Red Cell Distribution Width 12.5 % (11.0-16.0); White Blood Count 6.1 X10*3/uL (4.8-10.8)
[2023-10-07 10:02] LABS: Alanine Aminotransferase 13 U/L (0-40); Albumin Level 4.1 g/dL (3.5-5.0); Alkaline Phosphatase 70 U/L (39-117); Anion Gap 11 (12-20); Aspartate Amino Transferase 18 U/L (5-37); Blood Urea Nitrogen 12 mg/dL (9-16); Calcium 9.2 mg/dL (8.4-10.2); Carbon Dioxide 27 mmol/L (22-29); Chloride 106 mmol/L (96-108); Creatinine Clr Calc Pharmacy 191.9; Estimated Glomerular Filt Rate > 60; Glucose Random 128 mg/dL (60-115); Potassium 3.9 mmol/L (3.3-5.1); Sodium 140 mmol/L (135-145); Total Protein 6.5 g/dL (6.5-8.0)
[2023-10-07] MEDS: Ketorolac Tromethamine 15 MG/ML VIAL IVPUSH (10:03)
[2023-10-07 10:15] VITALS: BP 132/85; PULSE 69; RESP 18; TEMP 37.2; O2SAT 95
[2023-10-07 10:23] LABS: Appearance Urine Clear; Color Urine Yellow; Glucose Urine UA Negative (Negative); Leukocyte Esterase Urine Negative (Negative); Nitrite Urine Negative (Negative); PH 5.5 (5.0-9.0); Specific Gravity - Urine 1.015 (1.005-1.025); UMIC TRIGGER UACC YES; Urine Blood Small (1+) (Negative); Urine Ketones Trace mg/dL (Negative); Urine Protein Negative (Neg-Trace)
[2023-10-07 10:31] LABS: Bacteria Urine None Seen (None Seen); Hyaline Casts Urine 0-2 /LPF (0-2); RBC Urine 0-2 /HPF (0-2); Squamous Epithelial Cell Urine 0-2 /HPF (0-2); WBC Urine 0-5 /HPF (0-5)
[2023-10-07 11:53] VITALS: BP 132/85; PULSE 69; RESP 18; TEMP 37.2; O2SAT 95
== END 2023-10-07 11:55 | disposition home or self-care (01) ==
PROVIDERS: Emergency Provider Student in an Organized Health Care Education/Training Program; PCP Nurse Practitioner Family
DX: N20.2 Calculus of kidney with calculus of ureter (principal)
CPT/HCPCS: 36415; 74176; 80053; 81001; 85025; 96361; 96374; 99284; J1885

== ENCOUNTER 2023-10-10 00:43 | Emergency (ER) | payer OTHER, SELFPAY ==
--- NOTE | ~2023-10-10 | CT_ITS ---
EXAMINATION: CT ABDOMEN AND PELVIS WITHOUT CONTRAST CLINICAL INFORMATION: Abdominal pain. COMPARISON: None available. TECHNIQUE: Multidetector volumetric imaging was performed from the superior aspect of the liver through the pubic symphysis. Sagittal and coronal reformatted images were obtained on the technologist's workstation. This CT examination was performed using dose optimization techniques as appropriate, variously including the following: *Automated exposure control *Adjustment of mA and/or kV according to patient size (this includes techniques or standardized protocols for targeted exams where dose is matched to indication/reason for exam; i.e. extremities or head) *Use of iterative reconstruction technique DLP: 1192 mGy-cm FINDINGS: LUNG BASES: The visualized lung bases are unremarkable. LIVER, GALLBLADDER, AND BILIARY TREE: The liver is normal in size, shape, and attenuation. No focal hepatic lesion or biliary ductal dilatation is present. The gallbladder is unremarkable with no evidence of radiopaque gallstones, gallbladder wall thickening, or obvious pericholecystic inflammatory changes. PANCREAS: Unremarkable. SPLEEN: Unremarkable. ADRENAL GLANDS: Unremarkable. KIDNEYS AND URETERS: The kidneys are normal in size, shape, and attenuation. No intrarenal calculi are seen. There is mild right hydronephrosis and hydroureter extending into the pelvis to the level of a 2 mm calculus right ureterovesicular junction. BLADDER: Unremarkable. GASTROINTESTINAL TRACT: There is a large hiatal hernia. The small and large bowel are unremarkable. The appendix is unremarkable. ABDOMINAL WALL: There is a left inguinal hernia containing fat. LYMPH NODES: Normal. VASCULAR: Unremarkable. PELVIC VISCERA: Unremarkable. OSSEOUS STRUCTURES: Unremarkable. CT/CT abdomen pelvis wo IV con IMPRESSION: Mild right hydronephrosis and hydroureter from a 2 mm calculus at the right ureterovesicular junction. Large hiatal hernia. Left inguinal hernia containing fat. Fleischner guidelines were followed.
[2023-10-10 00:53] VITALS: BP 167/106; PULSE 65; RESP 18; TEMP 36.6; O2SAT 98; BMI 43.3
--- NOTE | 2023-10-10 01:57 | ED_ITS ---
HPI - Male Genitourinary General Chief complaint: Urogenital-Male Stated complaint: ? kidney stones Time Seen by Provider: 10/10/23 01:53 Source: patient Mode of arrival: ambulatory Limitations: no limitations History of Present Illness ED Provider: DR. Preston HPI Narrative: 38-year-old male presented for evaluation of right-sided flank pain started since 08:00 o'clock, unable to pee only dripping, pain is moving to the right groin area radiating to the right scrotum, having notice blood in the urine. Patient was seen 2 days ago for similar symptoms and found to have mid right ureteric kidney stone 4 mm. No nausea, no vomiting. Patient did was not prescribed any pain medication when he was discharged. Related Data Previous Rx's ?Medication ?Instructions ?Recorded oxycodone 5 mg tablet 5 mg PO BID PRN pain #7 tabs 10/10/23 oxycodone 5 mg tablet 5 mg PO Q8H PRN pain #10 tabs 10/10/23 prednisone 10 mg tablet 10 mg PO BID #10 tabs 10/10/23 tamsulosin 0.4 mg capsule (Flomax) 0.4 mg PO BEDTIME #7 caps 10/10/23 Allergies Allergy/AdvReac Type Severity Reaction Status Date / Time No Known Allergies Allergy Verified 10/10/23 01:02 Review of Systems 2 Review of Systems: All other systems are reviewed and are negative Constitutional: Reports as per HPI and Reports no additional constitutional complaints Eyes: Reports as per HPI and Reports no additional eye complaints Reports system reviewed and no additional complaints, except as documented Cardiovascular: Reports as per HPI and Reports no additional cardiovascular complaints Respiratory: Reports as per HPI and Reports no additional respiratory complaints Gastrointestinal: Reports as per HPI and Reports no additional gastrointestinal complaints Genitourinary: Reports no additional female genitourinary complaints Musculoskeletal: Reports no additional musculoskeletal complaints Skin/Breast: Reports system reviewed and no additional complaints, except as docu Psychiatric: Reports no additional psychiatric complaints Endocrine: Reports no additional endocrine complaints Hematologic/Lymphatic: Reports no additional hematologic/lymphatic complaints Allergic/Immunologic: Reports no additional allergic/immunologic complaints Reports system reviewed and no additional complaints, except as documented and Reports Abnormal speech present PMFSH Past Medical History Medical History Morbid obesity with BMI of 50.0-59.9, adult Surgical History Hx of esophagogastroduodenoscopy Family History Family History Mother High blood pressure PCOS (polycystic ovarian syndrome) Father Heart problem Social History Social History Household Members: Spouse Housing: House Do you presently have visiting nurse or other home services: No Alcohol intake: never Patient Tobacco Use Status: Never used Tobacco Smoked in Last 30 Days: No e-Cigarette/Vaping Use: Never Used Second Hand Smoke Exposure: No Use of substances other than those prescribed or required for medical reasons: No Advance Directives: No Advance Directives Information Provided: Yes Do you have a plan to hurt others: No Plan service: No 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 Blood pressure elevated. Heart rate normal. Respiratory rate normal. Temperature normal. Oxygen saturation normal. Appearance: Alert. Oriented X3. acute distress secondary to right flank pain Head: Normal external exam. Normocephalic. Atraumatic. No Purdy signs noted. No raccoon eyes noted Eyes: PERRLA. EOMI. Conjunctiva and sclera normal. Eyelids normal. ENT: TM's Normal. Pharynx normal. Uvula midline. Moist mucous membranes. No trismus noted. No drooling noted. No muffled voice noted. Neck: Normal inspection. Neck supple. FROM. No adenopathy. Thyroid Normal. No meningeal signs. No neck mass noted. CVS: Normal heart rate and rhythm. Heart sound normal. No murmurs noted. Pulses normal throughout. Respiratory: No respiratory distress. Painless inspiration. Breath sounds normal. No wheezes/rales/rhonchi noted. Chest nontender. No accessory muscle usage noted or decreased air movement noted. Abdomen: Soft and nontender. Bowel sounds normal in all 4 quadrants. No distention noted. No organomegaly noted. No visible injury noted. Back: R CVA tenderness. Full range of motion noted. exam: Positive cremasteric reflex bilaterally, no scrotal swelling or tenderness, normal testicular exam. Skin: Skin warm and dry. Normal skin color. Normal skin turgor. No rashes/lesions/lacerations noted. Extremities: No lower extremity edema. Extremities exhibit normal range of motion. Extremities nontender. Neuro: Oriented X 3. Cranial nerve exam: II-XII are grossly intact No motor deficit. No sensory deficit. Reflexes normal. Course Reevaluation(s) Reevaluation #1: 38-year-old male with known right mid ureteric 2 mm stone and hydro ureter, feels better with Dilaudid. Will discharge to follow-up with Urology, oxycodone, Flomax, prednisone for few days. Patient is able to urinate much better after Dilaudid. Time: 04:59 Medications Administered Discontinued Medications Generic Name Dose Route Start Last Admin Trade Name Freq PRN Reason Stop Dose Admin Hydromorphone HCl 1 mg 10/10/23 03:32 10/10/23 03:44 Hydromorphone Hcl 1 Mg/Ml Syringe IVPUSH 10/10/23 03:33 1 mg ONCE ONE Administration Protocol Sodium Chloride 1,000 mls @ 999 mls/hr 10/10/23 02:03 10/10/23 03:33 Ns IV 10/10/23 03:03 Infused .Q1H1M ONE Infusion Sodium Chloride 1,000 mls @ 999 mls/hr 10/10/23 03:33 10/10/23 03:44 Ns IV 10/10/23 04:33 999 mls/hr .Q1H1M ONE Administration Ketorolac Tromethamine 30 mg 10/10/23 02:03 10/10/23 02:16 Ketorolac Tromethamine 30 Mg/Ml Vial IVPUSH 10/10/23 02:04 30 mg ONCE ONE Administration Morphine Sulfate 4 mg 10/10/23 02:03 10/10/23 02:16 Morphine Sulfate 4 Mg/Ml Cartridge IVPUSH 10/10/23 02:04 4 mg ONCE ONE Administration Protocol Medical Decision Making Differential Diagnosis Differential Diagnoses: The differential diagnosis associated with the presentation includes (UTI, pyelonephritis, kidney stone, renal colic, acute appendicitis, acute colitis, diverticulitis, severe anemia, electrolyte derangement.) Admission/Observation Consideration of admission/observation: Escalation of care including admission/observation considered Lab Data MDM Lab Attestation statement: I reviewed the patient's lab results. 10/10/23 02:10 10/10/23 02:10 Labs: Lab Results 10/10/23 10/10/23 Range/Units 02:03 02:10 WBC 12.3 H (4.8-10.8) X10*3/uL RBC 5.06 (4.60-5.80) X10*6/uL Hgb 15.0 (14.0-18.0) g/dl Hct 44.0 (42.0-52.0) % MCV 87.0 (80.0-98.0) fL MCH 29.6 (27.0-33.0) pg MCHC 34.1 (31.0-36.0) g/dl RDW 12.5 (11.0-16.0) % Plt Count 231 (160-400) X10*3/uL MPV 8.7 L (9.4-12.4) fL Absolute Nucleated RBC 0.000 (0.0-0.012) X10*3/uL Nucleated RBC % (auto) 0.0 (0.0-0.2) /100WBC Sodium 136 (135-145) mmol/L Potassium 3.8 (3.3-5.1) mmol/L Chloride 102 (96-108) mmol/L Carbon Dioxide 23 (22-29) mmol/L Anion Gap 15 (12-20) BUN 17 H (9-16) mg/dL Creatinine 1.23 (0.5-1.4) mg/dL Estim Creat Clear Calc 133.2 Estimated GFR > 60 Random Glucose 103 (60-115) mg/dL Calcium 9.5 (8.4-10.2) mg/dL Total Bilirubin 0.9 (0.0-1.0) mg/dL AST 19 (5-37) U/L ALT 15 (0-40) U/L Alkaline Phosphatase 76 (39-117) U/L Total Protein 7.0 (6.5-8.0) g/dL Albumin 4.4 (3.5-5.0) g/dL Urine Color Yellow Urine Appearance Clear Urine pH 5.5 (5.0-9.0) Ur Specific [place] >= 1.030 H (1.005-1.025) Urine Protein Negative (Neg-Trace) mg/dL Urine Glucose (UA) Negative (Negative) mg/dL Urine Ketones 80 (Negative) mg/dL Urine Blood Moderate (2+) H (Negative) Urine Nitrite Negative (Negative) Ur Leukocyte Esterase Negative (Negative) Urine RBC 11-20 H (0-2) /HPF Urine WBC 0-5 (0-5) /HPF Ur Squamous Epith Cells 0-2 (0-2) /HPF Urine Bacteria None Seen (None Seen) Hyaline Casts 0-2 (0-2) /LPF Independent Interpretation I performed an independent interpretation of an: CT Scan (Abdomen pelvis:Mild right hydronephrosis and hydroureter from a 2 mm calculus at the right ureterovesicular junction. Large hiatal hernia. Left inguinal hernia containing fat. ) Radiology Impression Discussion of test interpretation with radiology: I have reviewed the radiologist's reading. Discharge Plan Discharge Clinical Impression: Right ureteral stone Patient Disposition: Home, Self-Care Instructions: Renal Colic (ED) Prescriptions: New oxycodone 5 mg tablet 5 mg PO Q8H PRN (Reason: pain) Qty: 10 0RF Rx Instructions: Partial Fill upon patient request. tamsulosin [Flomax] 0.4 mg capsule 0.4 mg PO BEDTIME Qty: 7 0RF prednisone 10 mg tablet 10 mg PO BID Qty: 10 0RF oxycodone 5 mg tablet 5 mg PO BID PRN (Reason: pain) Qty: 7 0RF Rx Instructions: Partial Fill upon patient request. Referrals: Bobo Donohue MD [Physician] - Print Language: Lithuanian
[2023-10-10 02:10] LABS: Appearance Urine Clear; Color Urine Yellow; Glucose Urine UA Negative (Negative); Leukocyte Esterase Urine Negative (Negative); Nitrite Urine Negative (Negative); PH 5.5 (5.0-9.0); Specific Gravity - Urine >= 1.030 (1.005-1.025); UMIC TRIGGER UACC YES; Urine Blood Moderate (2+) (Negative); Urine Ketones 80 mg/dL (Negative); Urine Protein Negative (Neg-Trace)
[2023-10-10 02:14] LABS: Mean Corpuscular HGB Conc 34.1 g/dl (31.0-36.0); Mean Corpuscular Hemoglobin 29.6 pg (27.0-33.0); Mean Platelet Volume 8.7 fL (9.4-12.4); Platelet Count 231 X10*3/uL (160-400); Red Blood Count 5.06 X10*6/uL (4.60-5.80); Red Cell Distribution Width 12.5 % (11.0-16.0); White Blood Count 12.3 X10*3/uL (4.8-10.8)
[2023-10-10 02:15] LABS: Bacteria Urine None Seen (None Seen); Hyaline Casts Urine 0-2 /LPF (0-2); Squamous Epithelial Cell Urine 0-2 /HPF (0-2); WBC Urine 0-5 /HPF (0-5)
[2023-10-10] MEDS: Morphine Sulfate 4 MG/ML CARTRIDGE IVPUSH (02:16)
[2023-10-10] MEDS: Ketorolac Tromethamine 30 MG/ML VIAL IVPUSH (02:16)
[2023-10-10] MEDS: 0.9 % Sodium Chloride 1,000 ML 999 ML IV ×2 (02:16→03:44)
[2023-10-10 02:27] LABS: Alanine Aminotransferase 15 U/L (0-40); Albumin Level 4.4 g/dL (3.5-5.0); Alkaline Phosphatase 76 U/L (39-117); Anion Gap 15 (12-20); Aspartate Amino Transferase 19 U/L (5-37); Bilirubin Total 0.9 mg/dL (0.0-1.0); Blood Urea Nitrogen 17 mg/dL (9-16); Calcium 9.5 mg/dL (8.4-10.2); Carbon Dioxide 23 mmol/L (22-29); Chloride 102 mmol/L (96-108); Creatinine Clr Calc Pharmacy 133.2; Estimated Glomerular Filt Rate > 60; Glucose Random 103 mg/dL (60-115); Potassium 3.8 mmol/L (3.3-5.1); Sodium 136 mmol/L (135-145)
[2023-10-10] MEDS: HYDROmorphone HCl 1 MG/ML SYRINGE IVPUSH (03:44)
--- NOTE | 2023-10-10 03:53 | PC.NURSE ---
pt resting quietly, on stretcher, in hallway, eyes closed, resp with ease, no s/s of acute distress
[2023-10-10 04:00] VITALS: BP 139/89; PULSE 61; RESP 18; TEMP 36.5; O2SAT 96
[2023-10-10 05:46] VITALS: BP 144/101; PULSE 63; RESP 18; TEMP 36.5; O2SAT 99
== END 2023-10-10 05:40 | disposition home or self-care (01) ==
PROVIDERS: Emergency Provider Emergency Medicine; PCP Nurse Practitioner Family
DX: N20.1 Calculus of ureter (principal); N50.82 Scrotal pain; K44.9 Diaphragmatic hernia without obstruction or gangrene; R10.30 Lower abdominal pain, unspecified; R11.0 Nausea; Z79.899 Other long term (current) drug therapy
CPT/HCPCS: 36415; 74176; 80053; 81001; 85027; 96361; 96374; 96375; 99284; J1170; J1885; J2270

== ENCOUNTER 2023-11-22 09:36 | Outpatient (AMB) | payer OTHER, SELFPAY ==
--- NOTE | 2023-11-22 09:47 | A.OFFVIS_ITS ---
Intake Visit Reasons: [facility] [place] ER(10/09) nephrolithiasis Intake Note: Patient is present for [facility] [place] ER(10/09) nephrolithiasis Urology Medication:tamsulosin Antibiotic Allergy:none Blood Thinner:none Regional Service Manager Required: No Allergies No Known Allergies Allergy (Verified 11/22/23 09:48) HPI Comments Details: Jm is a pleasant male. He is seen for the following urologic conditions - nephrolithiasis Nephrolithiasis Initial presentation through [place] emergency Presenting symptoms included flank pain with associated nausea Imaging - 10/21 CT scan right distal 3 mm stone Laboratory investigations - creatinine 1.3 Stone composition - unknown 24 hour urine evaluation - none on file Interventions - none No family history Current therapeutic plan - surveillance imaging - encourage lemon fluid and 2.5 L per day water PFSH Medical History Morbid obesity with BMI of 50.0-59.9, adult Surgical History Hx of esophagogastroduodenoscopy Family History Mother High blood pressure PCOS (polycystic ovarian syndrome) Father Heart problem Social History Household Members: Spouse Housing: House Do you presently have visiting nurse or other home services: No Alcohol intake: never Patient Tobacco Use Status: Never used Tobacco e-Cigarette/Vaping Use: Never Used Second Hand Smoke Exposure: No service: No 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 Current occupational exposures/hazards: No Cognitive needs: No Hearing needs: No Vision needs: No Review of Systems Const Denies chills and Denies fever(s) Card Reports no additional complaints and Denies syncope Resp Denies cough GI Denies abdominal pain and Denies heartburn Reports as per HPI and Denies change in libido Neuro Denies syncope Psych Denies change in libido Endo Denies change in libido Physical Exam Const General: cooperative, healthy appearing, comfortable and no acute distress Orientation/consciousness: patient oriented x3 HEENT Face and sinus: Yes normal facial exam Mouth: moist mucous membranes Neck Neck: Yes normal visual inspection, Yes full ROM and Yes trachea midline Chest Chest palpation & inspection: normal inspection of the chest Resp Effort & Inspection: normal respiratory effort, able to speak in complete sentences and no respiratory distress GI Inspection: Yes normal to inspection Back/Spine/Pelvis Cervical Spine: normal cervical lordosis Thoracic/Lumbar Spine: thoracic and lumbar spine normal to inspection Skin General skin exam: no rashes or lesions noted Neuro General: patient oriented x3, gait normal, tone normal and moves all extremities Extrem General: Yes normal to inspection and Yes capillary refill normal Assessment & Plan Assessment & Plan (1) Kidney stone on right side: Code(s): N20.0 - Calculus of kidney Category: Medical Plan Six-month follow-up renal ultrasound Orders: Orders US renal BI 6 Months N20.0 - Calculus of kidney Patient Instructions: Imaging studies, laboratory and physical exam results were discussed and reviewed in detail. No major barriers to patient understanding were identified. An opportunity to ask questions regarding the treatment plan was provided. All questions were answered. The patient expressed understanding and agreement with the above treatment plan. The patient is aware they should contact our office by phone for worsening of their current condition or the appearance of new urologic symptoms. Compliance is encouraged with any medications and followup testing that is ordered. It is a privilege to participate in the urologic care of your patient. If you have any questions or concerns regarding treatment for the above conditions, or other urologic issues, please do not hesitate to contact me. The office telephone contact is [phone]. This note is constructed using voice recognition software. While every effort has been made to ensure accuracy drilling field professional errors may have been included. Yours sincerely, Dr Bobo Donohue MD, [facility] - Urology Providers of Expert, Compassionate Care for the Genitourinary System Coding Level of Care Code New Pt Level 3 (37951) Diagnoses Kidney stone on right side N20.0
== END 2023-11-22 10:10 | disposition home or self-care (01) ==
PROVIDERS: PCP Nurse Practitioner Family; Visit Provider Urology
DX: N20.0 Calculus of kidney (principal)
CPT/HCPCS: 99203

== ENCOUNTER → 2023-11-22 09:36 | Outpatient (BNVA) | payer OTHER, SELFPAY | PROVIDERS: PCP Nurse Practitioner Family; Visit Provider Urology ==

== ENCOUNTER 2024-05-01 08:08 | Outpatient (REF) | payer OTHER, SELFPAY ==
--- NOTE | ~2024-05-01 | US_ITS ---
CLINICAL HISTORY: N20.0 - Calculus of kidney US Renal Comparison: None Findings: Right kidney normal length and mildly increased echotexture, 11.0 cm length. Left kidney normal length and mildly increased echotexture, 11.3 cm length. No collecting system dilatation of either kidney. Normal color Doppler. No evidence of renal calculus. IMPRESSION: Increased echogenicity of the bilateral kidneys suggesting possible medical renal disease. This document has been electronically signed by: Marivel Grubbs MD on 05/01/2024 16:29:10
--- OUTSIDE RECORDS SUMMARY | 2024-05-01 08:20 | XMS_ITS | Patient Health Record ---
Author Organization [facility] Address [address] [place] [phone] Care Team Providers Care Group Account Director Name Role Phone GABRIELERANDAL LUZ MARIA Primary Care Provider Brian Ramirez Jr Unavailable REASON FOR REFERRAL No Information SOCIAL HISTORY Sex Assigned At : Social History Observation Description Sex Assigned At Unknown PROBLEMS Problem Type ICD Code Onset Dates Problem Status W/U Status Risk SNOMED Code Notes Problem Peptic ulcer (K27.9) Active confirmed Peptic ulcer (28629206) Encounters Encounter Location Date Provider Diagnosis [facility] [address] [place] [phone] 07/04/2023 Brian oDwning Jr [facility] [address] [place] [phone] 07/04/2023 Brian Downing Jr PLAN OF TREATMENT No Information Insurance Providers Payer Name Payer Address Payer Phone Subscriber Number Group Number Insured Name Patient Relationship to Insured Coverage Start Date Coverage End Date [facility] [address] [place] [phone] [id number] KIN OSULLIVAN Self - patient is the insured
--- OUTSIDE RECORDS SUMMARY | 2024-05-01 08:20 | XMS_ITS ---
Author Organization [facility] Address [address] [place] [phone] Care Team Providers Care Nurse Office Name Role Phone LUZ MARIA MONTE Primary Care Provider Ana Downing Jr, Brian Unavailable [phone] REASON FOR VISIT Patient presents today for a PEPTIC ULCER Encounters Encounter Location Date Provider Diagnosis [facility] [address] [place] [phone] 07/04/2023 Brian Downing Jr PLAN OF TREATMENT No Information
--- OUTSIDE RECORDS SUMMARY | 2024-05-01 08:20 | XMS_ITS ---
Author Organization [facility] Address [address] [place] [phone] Care Team Providers Care Hand Drawer In Name Role Phone LUZ MARIA MONTE Primary Care Provider Brian Ramirez Jr Unavailable [phone] REASON FOR VISIT pathology Encounters Encounter Location Date Provider Diagnosis [facility] [address] [place] [phone] 02/16/2023 Brian Downing Jr PLAN OF TREATMENT No Information
--- OUTSIDE RECORDS SUMMARY | 2024-05-01 08:20 | XMS_ITS ---
Author Organization [facility] Address [address] [place] [phone] Care Team Providers Care Delicatessen Store Manager Name Role Phone LUZ MARIA MONTE Primary Care Provider Brian Ramirez Jr Unavailable [phone] REASON FOR VISIT cancel OV Encounters Encounter Location Date Provider Diagnosis [facility] [address] [place] [phone] 07/04/2023 Brian Downing Jr PLAN OF TREATMENT No Information
== END 2024-05-01 08:09 | disposition home or self-care (01) ==
LOC: HO.HMGCX 08:08
PROVIDERS: PCP Nurse Practitioner Family; Visit Provider Urology
DX: N20.0 Calculus of kidney (principal)
CPT/HCPCS: 76775

== ENCOUNTER → 2024-05-01 08:32 | Outpatient (BNV) | payer OTHER, SELFPAY | PROVIDERS: PCP Nurse Practitioner Family; Visit Provider Radiology Diagnostic Radiology | DX: N20.0 Calculus of kidney (principal) | CPT/HCPCS: 76775 ==

== ENCOUNTER 2024-05-22 09:05 | Outpatient (AMB) | payer OTHER, SELFPAY ==
--- NOTE | 2024-05-22 09:07 | MHC.OFFVIS ---
Intake Visit Reasons: 6m/US Intake Note: Patient is present for 6M/US Urology Medication:NONE Antibiotic Allergy:NONE Blood Thinner:NONE Skin Peeling Machine Operator Required: No Allergies No Known Allergies Allergy (Verified 05/22/24 09:08) HPI Comments Details: Jm is a pleasant male. He is seen for the following urologic conditions - nephrolithiasis Telemedicine Evaluation 15 min Consultation [employer] [place] Video Six-month follow-up No stone on current imaging Reinforced high fluid intake 12 month follow-up Nephrolithiasis Initial presentation through [place] emergency Presenting symptoms included flank pain with associated nausea Imaging - 10/21 CT scan right distal 3 mm stone - 05/22 renal ultrasound no evidence of stones Laboratory investigations - creatinine 1.3 Stone composition - unknown 24 hour urine evaluation - none on file Interventions - none No family history 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 Current therapeutic plan - surveillance imaging - encourage lemon fluid and 2.5 L per day water [facility] Medical History Morbid obesity with BMI of 50.0-59.9, adult Surgical History Hx of esophagogastroduodenoscopy Family History Mother High blood pressure PCOS (polycystic ovarian syndrome) Father Heart problem Social History Household Members: Spouse Housing: House Do you presently have visiting nurse or other home services: No Alcohol intake: never Patient Tobacco Use Status: Never used Tobacco e-Cigarette/Vaping Use: Never Used Second Hand Smoke Exposure: No service: No 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 Current occupational exposures/hazards: No Cognitive needs: No Hearing needs: No Vision needs: No Review of Systems Const All systems reviewed & are unremarkable except as noted in HPI and below Reports no additional complaints Resp Reports no additional complaints GI Reports no additional complaints Reports as per HPI [place] Reports no additional complaints Physical Exam Telemedicine evaluation Appropriate responses Regular breathing rate and rhythm HEENT Head: Yes normal to inspection Ears: hearing grossly normal bilaterally Eyes General: appearance normal, both eyes and all related structures Neck Neck: Yes normal visual inspection Chest Chest palpation & inspection: normal inspection of the chest Resp Effort & Inspection: normal respiratory effort and able to speak in complete sentences Telehealth Telehealth Telehealth Platform: [employer] Location of provider rendering services: practice address Location of patient: address on file Patient Identification confirmed using: Name, : Yes Telehealth method: video Patient verbally consented to treatment: Yes Patient verbally consented to billing insurance company: Yes Patient informed of any privacy concerns related to visit: Yes Minutes spent on Phone/Video with Pt.: 15 Assessment & Plan Assessment & Plan (1) Kidney stone on right side: Code(s): N20.0 - Calculus of kidney Category: Medical Plan Twelve month follow-up renal ultrasound Orders: Orders US renal BI 12 Months N20.0 - Calculus of kidney Patient Instructions: This note is constructed using voice recognition software. While every effort has been made to ensure accuracy railroad brake repairer errors may have been included. Imaging studies, laboratory and physical exam results were discussed and reviewed in detail. No major barriers to patient understanding were identified. An opportunity to ask questions regarding the treatment plan was provided. All questions were answered. The patient expressed understanding and agreement with the above treatment plan. The patient is aware they should contact our office by phone for worsening of their current condition or the appearance of new urologic symptoms. Compliance is encouraged with any medications and followup testing that is ordered. It is a privilege to participate in the urologic care of your patient. If you have any questions or concerns regarding treatment for the above conditions, or other urologic issues, please do not hesitate to contact me. The office telephone contact is [phone]. Sincerely, Dr Bobo Donohue MD, [facility] - Urology Compassionate Specialist Care for the Genitourinary System Coding Level of Care Code Tele Est Pt Level 3 (81222) Complex EM visit Add On G2211 Diagnoses Kidney stone on right side N20.0
--- OUTSIDE RECORDS SUMMARY | 2024-05-22 10:02 | XMS_ITS | Patient Health Record ---
Author Organization [facility] Address [address] [place] [phone] Care Team Providers Care Rolled Seat Trimmer Name Role Phone KAYCIELOLUZ MARIA Primary Care Provider Brian Ramirez Jr Unavailable Reason For Referral No Information Problems Problem Type SNOMED Code ICD Code Onset Dates Problem Status W/U Status Risk Notes Problem Peptic ulcer (48746227) Peptic ulcer (K27.9) Active confirmed Encounters Encounter Location Date Provider Diagnosis [facility] [address] [place] [phone] 07/04/2023 Brian Downing Jr Plan Of Treatment No Information Insurance Providers Payer Name Payer Address Payer Phone Subscriber Number Group Number Insured Name Patient Relationship to Insured Coverage Start Date Coverage End Date [facility] [address] [facility] [phone] [id number] KIN OSULLIVAN Self - patient is the insured
--- OUTSIDE RECORDS SUMMARY | 2024-05-22 10:02 | XMS_ITS ---
Author Organization [facility] Address [address] [place] [phone] Care Team Providers Care Certified Ski Patroller Name Role Phone ONIELPratimaLUZ MARIA Primary Care Provider Brian Ramirez Jr Unavailable [phone] REASON FOR VISIT pathology Encounters Encounter Location Date Provider Diagnosis [facility] [address] [place] [phone] 02/16/2023 Brian Downing Jr Plan Of Treatment No Information Progress Notes * KIN OSULLIVANDOB: 8 (37 yo M)Acc No.[id number]:02/16/2023 Patient:?KIN OSULLIVAN :1985???Age:37 Y???Sex:Male Address:[address] [place] [address], [id number] * true * Date:? Generated for Carlos isaac/Romeo/eTransmitting on:?05/22/2024 10:02 AM EDT
--- OUTSIDE RECORDS SUMMARY | 2024-05-22 10:02 | XMS_ITS ---
Author Organization [facility] Address [address] [place] [phone] Care Team Providers Care Special Makeup Fx Artist Instructor Name Role Phone LUZ MARIA MONTE Primary Care Provider Brian Ramirez Jr Unavailable REASON FOR VISIT cancel OV Encounters Encounter Location Date Provider Diagnosis [facility] [address] [place] [phone] 07/04/2023 Brian Downing Jr Plan Of Treatment No Information Progress Notes * KIN OSULLIVANDOB: 8 (37 yo M)Acc No.[id number]:07/04/2023 Patient:?KIN OSULLIVAN :1985???Age:37 Y???Sex:Male Address:[address] [place] [address], [phone] * true * Date:? Generated for Carlos isaac/Romeo/eTransmitting on:?05/22/2024 10:02 AM EDT
--- OUTSIDE RECORDS SUMMARY | 2024-05-22 10:02 | XMS_ITS ---
Author Organization [facility] Address [address] [place] [phone] Care Team Providers Care Requisition Approver Name Role Phone LUZ MARIA MONTE Primary Care Provider Ana Downing Jr Brian Unavailable REASON FOR VISIT Patient presents today for a PEPTIC ULCER Encounters Encounter Location Date Provider Diagnosis [facility] [address] [place] [phone] 07/04/2023 Brian Downing Jr Plan Of Treatment No Information Progress Notes * KIN OSULLIVANDOB: 8 (38 yo M)Acc No.[id number]:07/04/2023 Progress Notes Patient:?KIN OSULLIVAN Provider:?Brian Downing MD :1985???Age:37 Y???Sex:Male Joaquín e:07/04/2023 Address:[address] [place], [place] [phone] Pcp:LUZ MARIA MONTE Subjective: * Chief Complaints: * ???1. Patient presents today for a PEPTIC ULCER. * Medical History:? Objective: * Vitals:? Assessment: Plan: * Treatment: * * The named appointment provid er may or may not be the originator of this progress note, and it is not deemed complete until electronically signed by the appointment provider. Sign off status: Pending * Provider:?Brian Downing MD Date:?0 07/04/2023 Generated for Carlos isaac/Romeo/eTransmitting on:?05/22/2024 10:02 AM EDT
== END 2024-05-22 10:13 | disposition home or self-care (01) ==
LOC: HO.HUSH 09:06
PROVIDERS: PCP Nurse Practitioner Family; Visit Provider Urology
DX: N20.0 Calculus of kidney (principal)
CPT/HCPCS: 99213

== ENCOUNTER 2024-06-19 07:36 | Outpatient (AMB) | payer OTHER, SELFPAY ==
--- NOTE | 2024-06-19 07:38 | MHC.PC.OV ---
Vital Signs 06/19/24 07:42 Height 6 ft 3 in Weight 357 lb BMI 44.6 BP 116/72 Blood Pressure Location Rt brachial Position Sitting Respiration 17 Pulse 86 Pulse Source Pulse Oximeter Temp 98.1 F Temp Source Oral Pulse Oximetry (%) 99 Oxygen Delivery Method Room Air Intake Visit Reasons: Annual PE Allergies No Known Allergies Allergy (Verified 06/19/24 08:04) Medication List - Last Reconciled 06/19/24 by CALVIN Azar No Known Home Meds Tobacco use date assessed: 06/19/24 Dental Screening Dental Screen Date: 06/19/24 Did you have a dental visit in the last 12 months?: Yes Did you have a dental problem in the last 6 months where you did not have access to dental care?: No Was dental information given to patient?: Patient has dentist HPI Annual PE HPI Details History of Present Illness The patient is a 38-year-old male presenting for a physical examination. He denies any symptoms affecting his general health, including the absence of fever, chills, abnormal vision, respiratory issues, gastrointestinal concerns, and psychiatric symptoms. His comprehensive health condition remains stable without recent changes, and he maintains an overall state of well-being despite a history of morbid obesity. Health Maintenance - Discussed the importance of weight management considering morbid obesity. - Recommended lifestyle modifications including a balanced diet and regular physical activity to enhance overall health. - Discussed routine screening for potential obesity-related conditions. Social History - Reports overall well-being. - Identified as morbidly obese, implying a likely discussion around dietary habits and physical activity, although specifics were not provided. Review of Systems - General: Denies fevers and chills. - Eyes: Denies vision changes. - Cardiovascular: Denies chest pain. - Respiratory: Denies shortness of breath. - Gastrointestinal: Denies abdominal pain, constipation, diarrhea, and blood in stool. - Psychiatric: Denies suicidal ideation, homicidal ideation. Physical Exam General: Morbidly obese Orientation: Patient oriented x3 Limitations: No limitations Head: Normal to inspection Ears: Hearing grossly normal bilaterally Nose: Normal external nose present Face and sinus: Normal facial exam Eyes: Appearance normal, both eyes and all related structures Neck: Normal visual inspection and Yes full ROM Respiratory: Normal respiratory effort and able to speak in complete sentences. Clear to auscultation bilaterally Cardiovascular: Regular rate and rhythm. Normal S1 and S2 GI: Normal to inspection. Soft to palpation and nontender Skin: No rashes or lesions noted Neuro: Patient oriented x3 Extremities: Normal to inspection Results Plan The patient presented for a routine physical examination without new complaints. His history of morbid obesity was the primary focus, with discussions centered on lifestyle modifications to aid in weight management. He is currently stable with no acute issues identified. Routine monitoring and further evaluation on subsequent visits will be necessary to ensure ongoing management of obesity-related health risks. Discussion Notes I engaged in a discussion with the patient regarding his morbid obesity and emphasized the importance of weight management to prevent associated health risks. We reviewed lifestyle changes such as improving dietary habits and increasing physical activity as effective measures to address his condition. No additional testing or interventions were decided upon at this visit, as he is currently asymptomatic and in a stable condition. Patient Instructions - Follow a balanced diet and aim for regular physical activity. - Monitor any changes in health or new symptoms and report them promptly. - Maintain regular follow-up visits for ongoing health assessments. 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 1. Little interest or pleasure in doing things: not at all 2. Feeling down, depressed, or hopeless: not at all 3. Trouble falling or staying asleep, or sleeping too much: not at all 4. Feeling tired or having little energy: not at all 5. Poor appetite or overeating: not at all 6. Feeling bad about yourself - or that you are a failure or have let yourself or your family down: not at all 7. Trouble concentrating on things, such as reading the newspaper or watching television: not at all 8. Moving or speaking so slowly that other people could have noticed. Or the opposite - being so fidgety or restless that you have been moving around a lot more than usual: not at all 9. Thoughts that you would be better off or of hurting yourself in some way: not at all Total score: 0 Depression Screening Interpretation: Negative Depression Screening Done: Yes 58669 - PHQ-9 Billing: Yes Source: Developed by Drs. Musa Kincaid, Hayley Phillips, Layo Lemus and colleagues, with an educational alivia from [employer]. Thrive Questionnaire Date Thrive assessed: 06/16/24 I am a: Patient What is your living situation today?: I have a steady place to live Within the past 12 months, did the food you bought not last and you didn't have the money to get more?: Never true Within the past 12 months, did you worry whether your food would run out before you got money to buy more?: Never true Do you have trouble paying for medicines?: No Do you have trouble getting transportation to medical appointments?: No Do you have trouble paying your heating and electricity bill?: No Do you have trouble taking care of your child, family member or friend?: No Do you have trouble with day-to-day activities such as bathing, preparing meals, shopping, managing finances, etc.?: No Are you currently unemployed and looking for a job?: No Are you interested in more education?: No Please select the resources that you would like help with: None Currently or been in a relationship where the following occur: I choose not to answer THRIVE Score: 0 AUDIT C Alcohol Use Questionnaire (AUDIT-C) 1. How often do you have a drink containing alcohol?: Never 2. How many drinks containing alcohol do you have on a typical day when you are drinking?: 1 or 2 3. How often do you have six or more drinks on one occasion?: Never Total Score: 0 Score Reviewed/Action Taken: No KONG-7 AMB Questionnaire KONG-7 Date KONG - 7 assessed: 05/18/23 Feeling nervous, anxious, or on edge: 0 = Not at all Not being able to stop or control worryin = Not at all Worrying too much about different things: 0 = Not at all Trouble relaxin = Not at all Being so restless that it is hard to sit still: 0 = Not at all Becoming easily annoyed or irritable: 0 = Not at all Feeling afraid as if something awful might happen: 0 = Not at all Total KONG-7 score (0-4 normal; 5-9 mild; 10-14 moderate; 15-21 severe): 0 Source: Developed by Drs. Musa Kincaid, Hayley Phillips, Layo Lemus and colleagues, with an educational alivia from [employer]. KONG-7 Assessment Billing KONG-7 Assessment Tool: KONG-7 Assessment 68871 Physical exam (Primary Care) BMI result Body Mass Index 44.6 Tobacco/Smoking Status: Tobacco use Status Tobacco use date assessed 05/18/23 06/19/24 07:39 Patient Tobacco Use Status Never used Tobacco 06/19/24 07:39 e-Cigarette/Vaping Use Never Used 06/19/24 07:39 PHQ-9: PHQ-9 Score PHQ-9: Total score 0 06/19/24 07:39 Depression Screening Interpretation: Negative Thrive Assessment: Date of Thrive Assessment Date Thrive assessed 06/16/24 06/19/24 07:39 Currently or been in a relationship where the following occur: I choose not to answer Coding Level of Care Code Est Pt Prev Care 18-39y(11807) Diagnoses Physical exam Z00.00 Morbid obesity E66.01 Additional Codes PHQ-9 - 11331 - PHQ-9 Billing: Yes ([id number]) KONG-7 Assessment Billing - KONG-7 Assessment Tool: KONG-7 Assessment 41721 ([id number]) Assessment & Plan Assessment & Plan (1) Physical exam: Code(s): Z00.00 - Encounter for general adult medical examination without abnormal findings Category: Medical (2) Morbid obesity: Code(s): E66.01 - Morbid (severe) obesity due to excess calories Category: Medical Plan . Orders: Orders Comprehensive [place]. Panel Fast Today Z00.00 - Encounter for general adult medical examination without abnormal findings TSH reflex Free T4 Today Z00.00 - Encounter for general adult medical examination without abnormal findings UA CC w/rflx Micro + Cult Today Z00.00 - Encounter for general adult medical examination without abnormal findings Lipid Panel Today Z00.00 - Encounter for general adult medical examination without abnormal findings Complete Blood Count Auto Diff Today Z00.00 - Encounter for general adult medical examination without abnormal findings
[2024-06-19 07:42] VITALS: BP 116/72; PULSE 86; RESP 17; TEMP 36.7; O2SAT 99; BMI 44.6
== END 2024-06-19 08:01 | disposition home or self-care (01) ==
LOC: HO.HMCC 07:36
PROVIDERS: PCP Nurse Practitioner Family; Visit Provider Nurse Practitioner Family
DX: Z00.00 Encounter for general adult medical examination without abnormal findings (principal); E66.01 Morbid (severe) obesity due to excess calories; Z68.41 Body mass index [BMI] 40.0-44.9, adult

== ENCOUNTER → 2024-06-19 07:36 | Outpatient (BNVA) | payer OTHER, SELFPAY | PROVIDERS: PCP Nurse Practitioner Family; Visit Provider Nurse Practitioner Family | DX: Z00.00 Encounter for general adult medical examination without abnormal findings (principal); E66.01 Morbid (severe) obesity due to excess calories; Z68.41 Body mass index [BMI] 40.0-44.9, adult | CPT/HCPCS: 96127 ==